=== PATIENT | female | born 1995 | race Caucasian/White ===

== ENCOUNTER 2016-06-14 13:24 | Emergency (ER) | payer BC, OTHER ==
[~2016-06-14] VITALS: Ht 157.5 cm; Wt 75.4 kg
[~2016-06-14 13:24] MED LIST: HYDR-5688 PO; ONDA4TAB10 SL; ONDA4TAB46 PO
[2016-06-14 13:27] VITALS: TEMP 36.6; Ht 157.5 cm; Wt 75.4 kg
[2016-06-14] MEDS ORDERED: DICL50TA3 PO (13:44)
[2016-06-14 14:06] LABS: BASO % 0.5 %; BASO ABS # 0.04 K/uL (0-0.2); COMPLETE YES; EOS % 1.3 %; IG% 0.1 %; LYMPH % 25.9 %; LYMPH ABS # 2.18 K/uL (1.2-3.4); MEAN CELL VOLUME 85.8 fL (80-100); MEAN CORPUSCULAR HEMOGLOBIN 29.9 pg (25-34); MEAN CORPUSCULAR HGB CONC 34.9 g/dl (32-36); MEAN PLATELET VOLUME 9.6 fL (7.4-10.4); MONO % 6.8 %; NEUT % 65.4 %; PLATELET COUNT 342 K/uL (130-400); RED BLOOD COUNT 4.78 M/uL (4.2-5.4); WHITE BLOOD COUNT 8.41 K/uL (4.8-10.8)
[2016-06-14 14:10] LABS: URINE APPEARANCE CLOUDY (CLEAR); URINE BILIRUBIN NEG (NEG); URINE COLOR YELLOW; URINE EPITHELIAL CELL AUTO >30 /lpf (0-5); URINE NITRITE NEG (NEG); URINE PH 7.5 (4.5-7.5); URINE SPECIFIC GRAVITY 1.022 (1.000-1.030); UROBILINOGEN NEG (NEG); ZZUR CULT IF INDIC CLEAN CATCH YES
[2016-06-14 14:14] LABS: MANUAL MICROSCOPIC REQUIRED? NO; REVIEW REQ? YES
[2016-06-14 14:19] LABS: BUN/CREATININE RATIO 13.3 (10-20); CALCIUM 9.6 mg/dl (8.5-10.1); CREATININE 0.94 mg/dl (0.60-1.20); POTASSIUM 3.5 mmol/L (3.5-5.1)
[2016-06-14 14:22] LABS: ALB/GLOB RATIO 1.2 (0.9-2)
[2016-06-14] MEDS ORDERED: ONDANSETRON INJ 2 MG/ML 2 ML VIAL IV STA (15:22)
[2016-06-14] MEDS ORDERED: MoRPHine SULFATE 4 MG/ML 1 ML CARP\\VIAL IV ONE (15:30)
[2016-06-14] MEDS ORDERED: OPTIRAY 320 IV PRN (15:30)
[2016-06-14] MEDS ORDERED: SODIUM CHLORIDE 0.9% 1000ML 1,000 ML IV ONE ×2 (15:30)
--- NOTE | 2016-06-14 17:08 | DIAGNOSTIC IMAGING REPORT ---
PELVIC ULTRASOUND CLINICAL HISTORY: Right lower quadrant abdominal pain. COMPARISON STUDY: CT of the abdomen and pelvis April 01, 2016 and pelvic ultrasound May 07, 2012. TECHNIQUE: Transabdominal sonography of the pelvis was performed. Transvaginal imaging was deferred in this patient. FINDINGS: The uterus measures 7.4 x 2.6 x 4.4 cm. The endometrium measures 5 mm in thickness. The right ovary measures 4 x 1.4 x 2.5 cm and the left measures 2.8 x 1.3 x 3.7 cm. Color flow is identified within each ovary. There was no free fluid. IMPRESSION: Unremarkable transabdominal pelvic ultrasound. Electronically signed by: Joao Espinoza M.D. 06/14/2016 5:06 PM Dictated Date/Time: 06/14/2016 5:05 PM
[2016-06-14 18:00] VITALS: BP 139/91; PULSE 88; O2SAT 98
--- NOTE | 2016-06-14 18:37 | DIAGNOSTIC IMAGING REPORT ---
CT OF THE ABDOMEN AND PELVIS WITH CONTRAST CLINICAL HISTORY: Right lower quadrant abdominal pain. COMPARISON STUDY: CT of the abdomen and pelvis April 01, 2016 and pelvic ultrasound performed earlier today. TECHNIQUE: Following IV administration of 118 mL of Optiray-320, axial images of the abdomen and pelvis were obtained from the lung bases to the proximal femurs. Images were reviewed in the axial, sagittal, and coronal planes. IV contrast was administered without complication. Oral contrast was administered. CT DOSE: 345.93 mGy.cm FINDINGS: Lung bases are clear. No pneumatosis, free air or portal venous gas is present. Liver, spleen, adrenal glands, kidneys and pancreas are normal. There is no biliary or pancreatic ductal dilatation. There is no peripancreatic or pericholecystic infiltration. There is no hydronephrosis. The caliber and wall thickness of small and large bowel are normal. The appendix is normal. There is no free fluid. There is no lymphadenopathy or abscess. Skeletal structures are unremarkable. IMPRESSION: No acute process within the abdomen or pelvis. Normal appendix. Electronically signed by: Joao Espinoza M.D. 06/14/2016 6:35 PM Dictated Date/Time: 06/14/2016 6:32 PM
[2016-06-14] MEDS ORDERED: KETOROLAC TROMETHAMINE 30 MG/ML VIAL IV STA (19:25)
[2016-06-14] MEDS ORDERED: SEPTRA DS HOME PACK 1 EA VIAL PO ONE (19:30)
[2016-06-14] MEDS ORDERED: NORCO 5/325MG HOME PACK PO ONE (19:30)
[2016-06-14] MEDS ORDERED: SULF800T23 PO (19:32)
--- NOTE | 2016-06-14 23:15 | EMERGENCY ROOM VISIT NOTE ---
History First contact with patient: 15:07 Chief Complaint: VOMITING Stated Complaint: PAIN LWR RIGHT SIDE, V, D, WEAKNESS Nursing Triage Summary: Triage note: Pt reports diarrhea for the past several months. pt reports dark stool today "it had some red in it." pt also reports nausea and vomitting since this am. pt reports right abd pain since this am. History of Present Illness The patient is a 20 year old female who presents to the Emergency Room with complaints of right lower quadrant abdominal pain worsening over the past one day. The patient states that she has had associated nausea, vomiting, diarrhea , and weakness. The patient does report a history of some persistent diarrhea for the past several months. She has followed with her primary care physician, who is treating her for GERD. The patient is accompanied by her mother, and evidently the patient was followed by pediatric gastroenterology about 5 years ago for GI concerns. There is a family history of Crohn's disease, and the patient did have an upper and lower endoscopy about 5 or 6 years ago that was essentially normal. The patient has not continued GI follow-up in adulthood. The patient reports having 3 or 4 episodes of emesis today. She has felt warm but has not been taking her temperature. She is denying chance of and has not taken anything at home for her symptoms. She rates her current discomfort a 7/10. Review of Systems More than 10 systems were reviewed and otherwise negative with the exception of history of present illness. Past Medical/Surgical History Medical Problems: (1) GERD (gastroesophageal reflux disease) Family History FH: cancer FH: lung disease FHx: gallbladder disease Heart disease Hypertension Kidney disease Kidney stones Social History Smoking Status: Never Smoker Alcohol Use: none Drug Use: none Marital Status: single Housing Status: lives with family Occupation Status: employed Current/Historical Medications Scheduled Diclofenac (Voltaren), 50 MG PO Q12 Escitalopram (Lexapro), 10 MG PO DAILY Sulfa/Trimethoprim (Bactrim Ds 800MG/160MG), 1 TAB PO BID Allergies Coded Allergies: Penicillins (Unverified Allergy, Intermediate, hives, 06/14/16) Amoxicillin (Verified Allergy, Mild, UNKNOWN, 06/14/16) Physical Exam Vital Signs Date Time Temp Pulse Resp B/P Pulse Ox O2 Delivery O2 Flow Rate FiO2 06/14/16 18:00 88 18 139/91 98 Room Air 06/14/16 15:39 88 18 140/93 98 Room Air 06/14/16 13:27 36.6 90 18 123/85 98 Room Air Physical Exam VITALS: Vitals are noted on the nurse's note and reviewed by myself. Vital signs stable. GENERAL: Well-developed, well-nourished, white female, who is in no acute distress and resting comfortably. Patient is cooperative with the examination. HEAD: Normocephalic atraumatic. HEART: Regular rate and rhythm without murmurs gallops or rubs. LUNGS: Clear to auscultation bilaterally without wheezes, rales or rhonchi. No retractions or accessory muscle use. ABDOMEN: Positive normal bowel sounds x 4. Soft with right lower quadrant tenderness on palpation. There is also some suprapubic tenderness. No CVA tenderness. No left-sided or upper abdominal tenderness. No rebound or guarding. MUSCULOSKELETAL: No muscle atrophy, erythema, or edema noted. Full range of motion without joint tenderness in all extremities. Medical Decision & Procedures ER Provider Diagnostic Interpretation: PELVIC ULTRASOUND CLINICAL HISTORY: Right lower quadrant abdominal pain. COMPARISON STUDY: CT of the abdomen and pelvis April 01, 2016 and pelvic ultrasound May 07, 2012. TECHNIQUE: Transabdominal sonography of the pelvis was performed. Transvaginal imaging was deferred in this patient. FINDINGS: The uterus measures 7.4 x 2.6 x 4.4 cm. The endometrium measures 5 mm in thickness. The right ovary measures 4 x 1.4 x 2.5 cm and the left measures 2.8 x 1.3 x 3.7 cm. Color flow is identified within each ovary. There was no free fluid. IMPRESSION: Unremarkable transabdominal pelvic ultrasound. CT OF THE ABDOMEN AND PELVIS WITH CONTRAST CLINICAL HISTORY: Right lower quadrant abdominal pain. COMPARISON STUDY: CT of the abdomen and pelvis April 01, 2016 and pelvic ultrasound performed earlier today. TECHNIQUE: Following IV administration of 118 mL of Optiray-320, axial images of the abdomen and pelvis were obtained from the lung bases to the proximal femurs. Images were reviewed in the axial, sagittal, and coronal planes. IV contrast was administered without complication. Oral contrast was administered. CT DOSE: 345.93 mGy.cm FINDINGS: Lung bases are clear. No pneumatosis, free air or portal venous gas is present. Liver, spleen, adrenal glands, kidneys and pancreas are normal. There is no biliary or pancreatic ductal dilatation. There is no peripancreatic or pericholecystic infiltration. There is no hydronephrosis. The caliber and wall thickness of small and large bowel are normal. The appendix is normal. There is no free fluid. There is no lymphadenopathy or abscess. Skeletal structures are unremarkable. IMPRESSION: No acute process within the abdomen or pelvis. Normal appendix. Laboratory Results 06/14/16 13:55 Red Blood Count 4.78, Mean Corpuscular Volume 85.8, Mean Corpuscular Hemoglobin 29.9, Mean Corpuscular Hemoglobin Concent 34.9, Mean Platelet Volume 9.6, Neutrophils (%) (Auto) 65.4, Lymphocytes (%) (Auto) 25.9, Monocytes (%) (Auto) 6.8, Eosinophils (%) (Auto) 1.3, Basophils (%) (Auto) 0.5, Neutrophils # (Auto) 5.50, Lymphocytes # (Auto) 2.18, Monocytes # (Auto) 0.57, Eosinophils # (Auto) 0.11, Basophils # (Auto) 0.04 06/14/16 13:55 Test 06/14/16 13:50 06/14/16 13:55 Urine Color YELLOW Urine Appearance CLOUDY (CLEAR) Urine pH 7.5 (4.5-7.5) Urine Specific [place] 1.022 (1.000-1.030) Urine Protein NEG (NEG) Urine Glucose (UA) NEG (NEG) Urine Ketones 1+ (NEG) Urine Occult Blood 3+ (NEG) Urine Nitrite NEG (NEG) Urine Bilirubin NEG (NEG) Urine Urobilinogen NEG (NEG) Urine Leukocyte Esterase LARGE (NEG) Urine WBC (Auto) >30 /hpf (0-5) Urine RBC (Auto) 10-30 /hpf (0-4) Urine Hyaline Casts (Auto) 1-5 /lpf (0-5) Urine Epithelial Cells (Auto) >30 /lpf (0-5) Urine Bacteria (Auto) 2+ (NEG) Urine Pathogenic Casts /lpf (0) Urine Test NEG (NEG) White Blood Count 8.41 K/uL (4.8-10.8) Red Blood Count 4.78 M/uL (4.2-5.4) Hemoglobin 14.3 g/dL (12.0-16.0) Hematocrit 41.0 % (37-47) Mean Corpuscular Volume 85.8 fL (80-100) Mean Corpuscular Hemoglobin 29.9 pg (25-34) Mean Corpuscular Hemoglobin Concent 34.9 g/dl (32-36) Platelet Count 342 K/uL (130-400) Mean Platelet Volume 9.6 fL (7.4-10.4) Neutrophils (%) (Auto) 65.4 % Lymphocytes (%) (Auto) 25.9 % Monocytes (%) (Auto) 6.8 % Eosinophils (%) (Auto) 1.3 % Basophils (%) (Auto) 0.5 % Neutrophils # (Auto) 5.50 K/uL (1.4-6.5) Lymphocytes # (Auto) 2.18 K/uL (1.2-3.4) Monocytes # (Auto) 0.57 K/uL (0.11-0.59) Eosinophils # (Auto) 0.11 K/uL (0-0.5) Basophils # (Auto) 0.04 K/uL (0-0.2) RDW Standard Deviation 42.2 fL (36.4-46.3) RDW Coefficient of Variation 13.5 % (11.5-14.5) Immature Granulocyte % (Auto) 0.1 % Immature Granulocyte # (Auto) 0.01 K/uL (0.00-0.02) Anion Gap 9.0 mmol/L (3-11) Est Creatinine Clear Calc Drug Dose 91.5 ml/min Estimated GFR () 101.9 Estimated GFR (Non- 88.0 BUN/Creatinine Ratio 13.3 (10-20) Calcium Level 9.6 mg/dl (8.5-10.1) Total Bilirubin 0.5 mg/dl (0.2-1) Aspartate Amino Transf (AST/SGOT) 9 U/L (15-37) Alanine Aminotransferase (ALT/SGPT) 20 U/L (12-78) Alkaline Phosphatase 103 U/L (45-117) Total Protein 8.5 gm/dl (6.4-8.2) Albumin 4.6 gm/dl (3.4-5.0) Globulin 3.9 gm/dl (2.5-4.0) Albumin/Globulin Ratio 1.2 (0.9-2) Lipase 127 U/L (73-393) Medications Administered Medications (Trade) Dose Ordered Sig/Kim Route Start Time Stop Time Status Last Admin Dose Admin Sodium Chloride (Nss 1000ml) 1,000 ml @ 999 mls/hr Q1H1M ONCE IV 06/14/16 15:30 06/14/16 16:30 DC 06/14/16 15:36 999 MLS/HR Morphine Sulfate (MoRPHine SULFATE INJ) 4 mg NOW ONCE IV 06/14/16 15:30 06/14/16 15:31 DC 06/14/16 15:37 4 MG Ondansetron HCl 4 mg 4 mg NOW STAT IV 06/14/16 15:22 06/14/16 15:23 DC 06/14/16 15:37 4 MG Sodium Chloride (Nss 1000ml) 1,000 ml @ 999 mls/hr Q1H1M ONCE IV 06/14/16 15:30 06/14/16 16:30 DC 06/14/16 15:37 999 MLS/HR Ketorolac Tromethamine (Toradol Inj) 30 mg NOW STAT IV 06/14/16 19:25 06/14/16 19:26 DC 06/14/16 19:33 30 MG Trimethoprim/ Sulfamethoxazole (Sulfameth/ Trimeth Ds 800/ 160MG Home Pack) 1 homepack UD ONCE PO 06/14/16 19:30 06/14/16 19:31 DC 06/14/16 19:34 1 HOMEPACK Acetaminophen/ Hydrocodone Bitart ([place] 5/325mg Home Pack) 1 homepack UD ONCE PO 06/14/16 19:30 06/14/16 19:31 DC 06/14/16 19:33 1 HOMEPACK ED Course Physical exam and history were performed. Nursing notes and EMR were reviewed. Patient appears to have right lower quadrant tenderness of her abdomen as well as nausea, vomiting, and diarrhea. There is a past family history of Crohn's disease, but no such diagnosis for this patient. IV access was established and labs were obtained. She was hydrated with normal saline and provided a small amount of morphine and Zofran for comfort. Out of concern for a possible surgical abdomen at did elect to order an ultrasound of the ovary and CT scan of the abdomen and pelvis. The patient's blood work is as above and was reviewed. The patient does not have a significant elevated white blood cell count, gross anemia, bandemia, or significant electrolyte imbalance. Lipase and transaminases are nondiagnostic. The patient's urine is quite concerning for infectious findings. Ultrasound did return as showing no significant acute findings. CT scan also returned as no acute findings. Overall the patient did have improvement of her discomfort after the above interventions. She did require a small amount of Toradol prior to discharge. I clinically suspected that her discomfort is related to a UTI, and possibly an early ascending pyelonephritis. I will give the patient a course of Bactrim for her symptoms. Recommended that she follow with her primary care physician for further care and management. Regarding her chronic diarrhea, I feel that she should see GI now that she is an adult, and she agrees. The patient was otherwise invited back to the ER with any new, worsening, or concerning symptoms. She voiced understanding of this plan and was discharged home under the care of her mother. The chart was completed utilizing [employer] Speech Voice Recognition Software. Grammatical errors, random word insertions, pronoun errors, and incomplete sentences are an occasional consequence of this system due to software limitations, ambient noise, and hardware issues. Any formal questions or concerns about the content, text, or information contained within the body of this dictation should be directly addressed to the provider for clarification. . Medical Decision Differential diagnosis: Etiologies such as appendicitis, diverticulitis, PUD, biliary pathology, UTI, pancreatitis, obstruction, mesenteric ischemia, aortic pathology, infections, inflammatory bowel disease, renal colic, as well as others were entertained. Impression Primary Impression: Urinary tract infection Additional Impressions: Abdominal pain Chronic diarrhea Departure Information Prescriptions Sulfa/Trimethoprim (Bactrim Ds 800MG/160MG) Tab 1 TAB PO BID for 9 Days, #18 TAB Prov: Tomas Hernandez PA-C 06/14/16 Referrals Jaci Espinoza M.D. (PCP) Patient Instructions [facility] Problem Qualifiers
[2016-06-20] MEDS ORDERED: ESCI10TA17 PO (16:34)
[2016-08-07] MEDS ORDERED: VANC5CAP PO (09:21)
[2016-11-12] MEDS ORDERED: TRAM-10 PO (10:35)
[2016-12-16] MEDS ORDERED: CYCL5TAB PO (10:35)
== END 2016-06-14 20:39 | disposition home or self-care (01) ==
LOC: C.EDB 13:26
DX: N39.0 Urinary tract infection, site not specified (principal); R10.9 Unspecified abdominal pain; K52.9 Noninfective gastroenteritis and colitis, unspecified; K21.9 Gastro-esophageal reflux disease without esophagitis; Z83.79 Family history of other diseases of the digestive system; Z79.899 Other long term (current) drug therapy

== ENCOUNTER 2016-06-19 08:11 | Emergency (ER) | payer BC ==
[~2016-06-19] VITALS: Ht 157.5 cm; Wt 75.0 kg
[~2016-06-19 08:11] MED LIST changes: +DICL50TA3 PO; -HYDR-5688 PO; -ONDA4TAB10 SL; -ONDA4TAB46 PO; +SULF800T23 PO
[2016-06-19 08:12] VITALS: TEMP 36.5; Ht 157.5 cm; Wt 75.0 kg
[2016-06-19] MEDS ORDERED: ONDANSETRON INJ 2 MG/ML 2 ML VIAL IV STA (08:26)
[2016-06-19] MEDS ORDERED: SODIUM CHLORIDE 0.9% 1000ML 1,000 ML IV STA ×2 (08:26→09:36)
--- NOTE | 2016-06-19 08:33 | EMERGENCY ROOM VISIT NOTE ---
History First contact with patient: 08:18 Chief Complaint: VOMITING Stated Complaint: VOMITING Nursing Triage Summary: Vomiting. UTI. abdominal pain. History of Present Illness The patient is a 20 year old female who presents to the Emergency Room with complaints of abdominal pain, nausea, vomiting and diarrhea. The patient states that she has had ongoing diarrhea for the last several months. She states that she noticed some blood in her diarrhea. The patient has also had vomiting and diarrhea. She states she feels very lightheaded and has lost 10 pounds because she has not been able to eat. She saw her family doctor who thought it might be related to stress. She was seen here 5 days ago. She had CT imaging which did not reveal any significant abnormality. She was diagnosed with a bladder infection and started on Bactrim. The patient states she has not had any improvement in her symptoms. She rates her discomfort a 7/10. She denies any fevers. She denies any pain in her chest or trouble breathing. She denies any dysuria, urgency, frequency, hematuria. She denies any vaginal bleeding or discharge. She denies any chance for sexual transmitted infections. Review of Systems A 10 system review of systems was completed with positives and pertinent negatives listed in the HPI. Past Medical/Surgical History Medical Problems: (1) GERD (gastroesophageal reflux disease) Family History FH: cancer FH: lung disease FHx: gallbladder disease Heart disease Hypertension Kidney disease Kidney stones Social History Smoking Status: Never Smoker Alcohol Use: none Drug Use: none Marital Status: single Housing Status: lives with family Occupation Status: employed Current/Historical Medications Scheduled Escitalopram (Lexapro), 10 MG PO DAILY Metronidazole (Flagyl), 500 MG PO TID Ondasetron Odt (Zofran Odt), 4 MG PO PRN UD Ondasetron Odt (Zofran Odt), 4 MG SL Q6H Scheduled PRN Diclofenac Sod (Diclofenac Sodium Dr), 50 MG PO Q12 PRN for Pain Allergies Coded Allergies: Penicillins (Unverified Allergy, Intermediate, hives, 06/19/16) Amoxicillin (Verified Allergy, Mild, UNKNOWN, 06/19/16) Physical Exam Vital Signs Date Time Temp Pulse Resp B/P Pulse Ox O2 Delivery O2 Flow Rate FiO2 06/19/16 14:49 76 20 128/80 98 06/19/16 13:45 76 20 128/80 98 Room Air 06/19/16 11:45 75 20 121/81 99 Room Air 06/19/16 09:48 77 18 121/85 99 Room Air 06/19/16 08:12 36.5 118 18 118/73 99 Room Air Physical Exam VITALS: Vitals are noted on the nurse's note and reviewed by myself. Vital signs stable. The patient is afebrile. GENERAL: This is a 20-year-old female, in no acute distress, nondiaphoretic, well-developed well-nourished. SKIN: The skin was without rashes, erythema, edema, or bruising. There is no tenting of the skin. Capillary reflex less than 2 seconds. HEAD: Normocephalic atraumatic. EARS: External auditory canals clear, tympanic membranes pearly san without erythema or effusion bilaterally. EYES: Pupils equal round and reactive to light and accommodation. Conjunctivae without injection, sclerae without icterus. Extraocular movements intact. NOSE: Patent, turbinates without inflammation or discharge. No sinus tenderness. MOUTH: Mucous membranes moist. Tonsils are not enlarged. Pharynx without erythema or exudate. Uvula midline. Airway patent. Tongue does not deviate. NECK: Supple without nuchal rigidity. No lymphadenopathy. No thyromegaly. Cervical spine is nontender. No JVD. HEART: Regular rate and rhythm without murmurs gallops or rubs. LUNGS: Clear to auscultation bilaterally without wheezes, rales or rhonchi. No retractions or accessory muscle use. ABDOMEN: Positive bowel sounds x 4. Soft, nontender, without masses or organomegaly. There is mild diffuse tenderness. : The external genitalia is normal in appearance. There is whitish discharge. There is minimal cervical irritation. There is no cervical motion tenderness, adnexal tenderness or adnexal mass. MUSCULOSKELETAL: No muscle atrophy, erythema, or edema noted. Full range of motion without joint tenderness in all extremities. No tenderness to palpation. Normal gait. Strength 5/5 throughout. NEURO: Patient was alert and oriented to person place and time. No focal neurological deficits. Medical Decision & Procedures Laboratory Results 06/19/16 08:30 Red Blood Count 4.96, Mean Corpuscular Volume 84.5, Mean Corpuscular Hemoglobin 30.0, Mean Corpuscular Hemoglobin Concent 35.6, Mean Platelet Volume 9.9, Neutrophils (%) (Auto) 58.6, Lymphocytes (%) (Auto) 28.7, Monocytes (%) (Auto) 8.7, Eosinophils (%) (Auto) 3.2, Basophils (%) (Auto) 0.7, Neutrophils # (Auto) 3.98, Lymphocytes # (Auto) 1.95, Monocytes # (Auto) 0.59, Eosinophils # (Auto) 0.22, Basophils # (Auto) 0.05 06/19/16 08:30 Test 06/19/16 08:30 06/19/16 09:30 06/19/16 10:00 06/19/16 10:40 White Blood Count 6.80 K/uL (4.8-10.8) Red Blood Count 4.96 M/uL (4.2-5.4) Hemoglobin 14.9 g/dL (12.0-16.0) Hematocrit 41.9 % (37-47) Mean Corpuscular Volume 84.5 fL (80-100) Mean Corpuscular Hemoglobin 30.0 pg (25-34) Mean Corpuscular Hemoglobin Concent 35.6 g/dl (32-36) Platelet Count 310 K/uL (130-400) Mean Platelet Volume 9.9 fL (7.4-10.4) Neutrophils (%) (Auto) 58.6 % Lymphocytes (%) (Auto) 28.7 % Monocytes (%) (Auto) 8.7 % Eosinophils (%) (Auto) 3.2 % Basophils (%) (Auto) 0.7 % Neutrophils # (Auto) 3.98 K/uL (1.4-6.5) Lymphocytes # (Auto) 1.95 K/uL (1.2-3.4) Monocytes # (Auto) 0.59 K/uL (0.11-0.59) Eosinophils # (Auto) 0.22 K/uL (0-0.5) Basophils # (Auto) 0.05 K/uL (0-0.2) RDW Standard Deviation 41.7 fL (36.4-46.3) RDW Coefficient of Variation 13.7 % (11.5-14.5) Immature Granulocyte % (Auto) 0.1 % Immature Granulocyte # (Auto) 0.01 K/uL (0.00-0.02) Prothrombin Time 11.8 SECONDS (9.0-12.0) Prothromb Time International Ratio 1.1 (0.9-1.1) Activated Partial Thromboplast Time 30.0 SECONDS (21.0-31.0) Partial Thromboplastin Ratio 1.2 Anion Gap 14.0 mmol/L (3-11) Est Creatinine Clear Calc Drug Dose 98.6 ml/min Estimated GFR () 111.9 Estimated GFR (Non- 96.6 BUN/Creatinine Ratio 14.8 (10-20) Calcium Level 9.9 mg/dl (8.5-10.1) Magnesium Level 2.2 mg/dl (1.8-2.4) Total Bilirubin 0.6 mg/dl (0.2-1) Aspartate Amino Transf (AST/SGOT) 12 U/L (15-37) Alanine Aminotransferase (ALT/SGPT) 19 U/L (12-78) Alkaline Phosphatase 109 U/L (45-117) Total Protein 8.1 gm/dl (6.4-8.2) Albumin 4.5 gm/dl (3.4-5.0) Globulin 3.6 gm/dl (2.5-4.0) Albumin/Globulin Ratio 1.3 (0.9-2) Amylase Level 47 U/L (25-115) Lipase 122 U/L (73-393) Urine Crystals CALCIUM OXALATE (NONE Urine Test NEG (NEG) Stool Cryptosporidium Antigen NOT DETECTED (NOT DETECTED) Stool Isospora and Cyclospora NOT DETECTED Stool Ova & Parasites SEE NOTE Stool Ova & Parasite Source OTHER-TOTAL Stool Parasite Trichrome Stain SEE NOTE Stool Comments (()) Giardia Antigen NOT DETECTED (NOT DETECTED) Chlamydia trachomatis RNA NOT DETECTED (NOT DETECTED) Neisseria gonorrhoeae RNA NOT DETECTED (NOT DETECTED) Test 06/19/16 11:20 Urine Color YELLOW Urine Appearance CLEAR (CLEAR) Urine pH 5.0 (4.5-7.5) Urine Specific [place] 1.020 (1.000-1.030) Urine Protein NEG (NEG) Urine Glucose (UA) NEG (NEG) Urine Ketones 2+ (NEG) Urine Occult Blood TRACE (NEG) Urine Nitrite NEG (NEG) Urine Bilirubin NEG (NEG) Urine Urobilinogen NEG (NEG) Urine Leukocyte Esterase NEG (NEG) Urine WBC (Auto) 1-5 /hpf (0-5) Urine RBC (Auto) 0-4 /hpf (0-4) Urine Hyaline Casts (Auto) 1-5 /lpf (0-5) Urine Epithelial Cells (Auto) >30 /lpf (0-5) Urine Bacteria (Auto) NEG (NEG) Urine Renal Epithelial Cells /lpf (0-5) Urine Pathogenic Casts /lpf (0) Urine Mucus PRESENT (NONE PRSENT) Date/Time Source Procedure Growth Status 06/19/16 10:40 Vaginal Swab Trichomonas Preparation - Final Complete 06/19/16 11:20 Urine,Catheterized Urine Culture - Final NO GROWTH - LESS THAN 1,000 COLONIES/ML Complete Medications Administered Medications (Trade) Dose Ordered Sig/Kim Route Start Time Stop Time Status Last Admin Dose Admin Sodium Chloride (Nss 1000ml) 1,000 ml @ 999 mls/hr Q1H1M STAT IV 06/19/16 08:26 06/19/16 09:26 DC 06/19/16 08:48 999 MLS/HR Ondansetron HCl 4 mg 4 mg NOW STAT IV 06/19/16 08:26 06/19/16 08:29 DC 06/19/16 08:49 4 MG Sodium Chloride (Nss 1000ml) 1,000 ml @ 999 mls/hr Q1H1M STAT IV 06/19/16 09:36 06/19/16 10:36 DC 06/19/16 09:47 999 MLS/HR Metronidazole (Flagyl Tab) 500 mg NOW STAT PO 06/19/16 12:42 06/19/16 12:43 DC 06/19/16 13:09 500 MG ED Course The patient was seen and examined. Previous visits were reviewed. The patient does not have a fever or leukocytosis. She does not have any significant electrolyte abnormality. Amylase and lipase were not elevated. INR was 1.1. Initial urinalysis clean catch suggests contamination. A urine cath specimen was obtained and does not suggest urinary tract infection. Pelvic cultures are pending. Stool studies are pending. Stool was positive for C. difficile. The patient has had ongoing diffuse abdominal discomfort, diarrhea and vomiting. She is positive for C. difficile. She'll be started on Flagyl. She already has Zofran. She'll be contacted if the culture results indicate the need for change in treatment. She should return with worsening symptoms. Otherwise, she should follow-up with her family doctor next week. The case was discussed with Dr. Godinez who agrees with the assessment and treatment plan Medical Decision DIFFERENTIAL DIAGNOSIS: Hepatitis, cholecystitis, cholangitis, biliary colic, pancreatitis, pneumonia, subdiaphragmatic abscess, appendicitis, inguinal hernia , nephrolithiasis, inflammatory bowel disease, mesenteric adenitis, peptic ulcer disease, GERD, gastritis, pancreatitis, myocardial infarction, pericarditis, ruptured aortic aneurysm, appendicitis, gastroenteritis, bowel obstruction, splenic infarct, diverticulitis, mesenteric ischemia, metabolic, peritonitis, among others. Impression Primary Impression: C. difficile diarrhea Departure Information Dispostion Home / Self-Care Condition GOOD Prescriptions Metronidazole (Flagyl) 500 Mg Tab 500 MG PO TID for 10 Days, #30 TAB Prov: Janet Wilburn PA-C 06/19/16 Referrals Jaci Espinoza M.D. (PCP) Patient Instructions Clostridium Difficile Toxin Stool, [facility] Additional Instructions Flagyl every 8 hours for 10 days to treat C. difficile infection Do not drink alcohol when taking the Flagyl Return to the emergency Department with any worsening symptoms We will contact you if the culture results indicate the need for change in treatment
[2016-06-19 08:43] LABS: BASO % 0.7 %; BASO ABS # 0.05 K/uL (0-0.2); COMPLETE YES; EOS % 3.2 %; HEMATOCRIT 41.9 % (37-47); IG% 0.1 %; LYMPH % 28.7 %; LYMPH ABS # 1.95 K/uL (1.2-3.4); MEAN CELL VOLUME 84.5 fL (80-100); MEAN CORPUSCULAR HGB CONC 35.6 g/dl (32-36); MEAN PLATELET VOLUME 9.9 fL (7.4-10.4); MONO % 8.7 %; NEUT % 58.6 %; PLATELET COUNT 310 K/uL (130-400); RED BLOOD COUNT 4.96 M/uL (4.2-5.4)
[2016-06-19 08:55] LABS: INR 1.1 (0.9-1.1); PARTIAL THROMBOPLASTIN RATIO 1.2; PROTHROMBIN TIME (PATIENT) 11.8 SECONDS (9.0-12.0)
[2016-06-19 09:00] LABS: BUN/CREATININE RATIO 14.8 (10-20); CALCIUM 9.9 mg/dl (8.5-10.1); CREATININE 0.87 mg/dl (0.60-1.20); MAGNESIUM 2.2 mg/dl (1.8-2.4); POTASSIUM 3.5 mmol/L (3.5-5.1)
[2016-06-19 09:02] LABS: ALB/GLOB RATIO 1.3 (0.9-2)
--- NOTE | 2016-06-19 09:24 | DIAGNOSTIC IMAGING REPORT ---
ABDOMEN 2VIEW W/PA CHEST RTN CLINICAL HISTORY: abdominal pain pain. Nausea. COMPARISON STUDY: No previous studies for comparison. FINDINGS: The soft tissues, psoas shadows, renal outlines and intestinal gas pattern appear normal. There is no evidence for bowel obstruction. There is no evidence for free intraperitoneal air. No abnormal abdominal calcifications are seen. A frontal view of the chest was performed and is unremarkable. IMPRESSION: Normal study. Electronically signed by: Herb Wang M.D. 06/19/2016 9:22 AM Dictated Date/Time: 06/19/2016 9:19 AM
[2016-06-19 10:08] LABS: URINE APPEARANCE CLOUDY (CLEAR); URINE COLOR DK YELLOW; URINE EPITHELIAL CELL AUTO >30 /lpf (0-5); URINE NITRITE NEG (NEG); URINE SPECIFIC GRAVITY 1.035 (1.000-1.030); UROBILINOGEN NEG (NEG); ZZUR CULT IF INDIC CLEAN CATCH YES
[2016-06-19 10:13] LABS: MANUAL MICROSCOPIC REQUIRED? NO; REVIEW REQ? YES; URINE BILIRUBIN NEG (NEG)
[2016-06-19 10:40] LABS: URINE MUCUS PRESENT (NONE PRSENT); URINE PATH CASTS 0-3 GRANULAR CASTS /lpf (0)
[2016-06-19] MEDS ORDERED: METRONIDAZOLE 250 MG TAB PO STA (12:42)
[2016-06-19 13:40] LABS: URINE APPEARANCE CLEAR (CLEAR); URINE BILIRUBIN NEG (NEG); URINE COLOR YELLOW; URINE EPITHELIAL CELL AUTO >30 /lpf (0-5); URINE NITRITE NEG (NEG); UROBILINOGEN NEG (NEG); ZZURINE CULT IF INDIC CATH NO
[2016-06-19 13:42] LABS: MANUAL MICROSCOPIC REQUIRED? NO; REVIEW REQ? YES
[2016-06-19 13:52] LABS: URINE MUCUS PRESENT (NONE PRSENT)
[2016-06-19] MEDS ORDERED: METR-163 PO (14:23)
[2016-06-19 14:49] VITALS: BP 128/80; PULSE 76; O2SAT 98
[2016-06-20] MEDS ORDERED: ESCI10TA17 PO (16:34)
[2016-06-20] MEDS ORDERED: ONDA4TAB10 PO (22:41)
[2016-06-20] MEDS ORDERED: VLT50 PO (22:41)
[2016-06-21 01:21] LABS: CHLAMYDIA TRACH RNA*** NOT DETECTED (NOT DETECTED); GC (NEIS GONORRHOEAE)RNA** NOT DETECTED (NOT DETECTED)
[2016-06-21 15:57] LABS: CRYPTOSPORIDIUM AG TC 37213 NOT DETECTED (NOT DETECTED); ISOSPORA+CYCLOSPORA NOT DETECTED; O&P GIARDIA AG NOT DETECTED (NOT DETECTED); O&P SOURCE OTHER-TOTAL
[2016-08-07] MEDS ORDERED: VANC5CAP PO (09:21)
[2016-11-12] MEDS ORDERED: TRAM-10 PO (10:35)
[2016-12-16] MEDS ORDERED: CYCL5TAB PO (10:35)
== END 2016-06-19 14:50 | disposition home or self-care (01) ==
LOC: C.EDB 08:12
DX: A04.7 Enterocolitis due to Clostridium difficile (principal); Z82.49 Family history of ischemic heart disease and other diseases of the circulatory system

== ENCOUNTER 2016-06-20 21:45 | Emergency (ER) | payer BC ==
[~2016-06-20] VITALS: Ht 157.5 cm; Wt 74.6 kg
[~2016-06-20 21:45] MED LIST changes: +ESCI10TA17 PO; +METR-163 PO
[2016-06-20 21:49] VITALS: TEMP 36.8; Ht 157.5 cm; Wt 74.6 kg
[2016-06-20] MEDS ORDERED: VLT50 PO (22:41)
[2016-06-20] MEDS ORDERED: ONDA4TAB10 PO (22:41)
[2016-06-20] MEDS ORDERED: KETOROLAC TROMETHAMINE 30 MG/ML VIAL IV STA (22:45)
[2016-06-20] MEDS ORDERED: ONDANSETRON INJ 2 MG/ML 2 ML VIAL IV STA (22:45)
[2016-06-20] MEDS ORDERED: SODIUM CHLORIDE 0.9% 1000ML 1,000 ML IV STA ×2 (22:45)
[2016-06-20 23:09] LABS: HEMATOCRIT 44.1 % (37-47); MEAN CELL VOLUME 94.6 fL (80-100); MEAN CORPUSCULAR HEMOGLOBIN 31.5 pg (25-34); MEAN CORPUSCULAR HGB CONC 33.3 g/dl (32-36); MEAN PLATELET VOLUME 9.4 fL (7.4-10.4); PLATELET COUNT 261 K/uL (130-400); RED BLOOD COUNT 4.66 M/uL (4.2-5.4); WHITE BLOOD COUNT 8.73 K/uL (4.8-10.8)
[2016-06-20 23:10] LABS: BASO % 0.1 %; BASO ABS # 0.01 K/uL (0-0.2); COMPLETE YES; EOS % 1.4 %; IG% 0.2 %; LYMPH % 31.4 %; LYMPH ABS # 2.74 K/uL (1.2-3.4); MONO % 7.4 %; NEUT % 59.5 %
[2016-06-20 23:31] LABS: URINE APPEARANCE CLOUDY (CLEAR); URINE BILIRUBIN NEG (NEG); URINE COLOR DK YELLOW; URINE EPITHELIAL CELL AUTO >30 /lpf (0-5); URINE NITRITE NEG (NEG); UROBILINOGEN NEG (NEG); ZZUR CULT IF INDIC CLEAN CATCH YES
[2016-06-20 23:42] LABS: BUN/CREATININE RATIO 10.9 (10-20); CALCIUM 8.8 mg/dl (8.5-10.1); CREATININE 0.77 mg/dl (0.60-1.20); POTASSIUM 3.7 mmol/L (3.5-5.1)
[2016-06-20 23:44] LABS: ALB/GLOB RATIO 1.3 (0.9-2)
[2016-06-20 23:53] LABS: MANUAL MICROSCOPIC REQUIRED? NO; REVIEW REQ? YES
[2016-06-21] MEDS ORDERED: ONDANSETRON INJ 2 MG/ML 2 ML VIAL IV STA (00:04)
[2016-06-21] MEDS ORDERED: ONDA4TAB10 SL (00:15)
--- NOTE | 2016-06-21 00:15 | EMERGENCY ROOM VISIT NOTE ---
History First contact with patient: 22:22 Chief Complaint: VOMITING Stated Complaint: CONSTANT VOMITING AND DIARRHEA Nursing Triage Summary: Vomiting and diarrhea for a week. Patient is currently being treated for C-diff with flagyl. Symptoms are not improving. History of Present Illness The patient is a 20 year old female who presents to the Emergency Room with complaints of vomiting and diarrhea. The patient states that she was seen here yesterday and diagnosed with C. difficile. She was started on metronidazole and has taken 2 days of this medication. She reports that she has had persistent vomiting and diarrhea as well as some generalized abdominal pain. She has not been taking any other medications for her symptoms. She rates her overall discomfort a 9/10. She states that she has had 6 episodes of diarrhea today and has been unable to eat due to the nausea. She is concerned about dehydration. She denies any fevers/chills, urinary symptoms, blood in her stools, chest pain or shortness of breath. Review of Systems A complete 10-point Review of Systems was discussed with the patient, with pertinent positives and negatives listed in the History of Present Illness. All remaining Review of Systems questions can be considered negative unless otherwise specified. Past Medical/Surgical History Medical Problems: (1) GERD (gastroesophageal reflux disease) Family History FH: cancer FH: lung disease FHx: gallbladder disease Heart disease Hypertension Kidney disease Kidney stones Social History Smoking Status: Never Smoker Alcohol Use: none Drug Use: none Marital Status: single Housing Status: lives with family Occupation Status: employed Current/Historical Medications Scheduled Escitalopram (Lexapro), 10 MG PO DAILY Metronidazole (Flagyl), 500 MG PO TID Ondasetron Odt (Zofran Odt), 4 MG PO PRN UD Ondasetron Odt (Zofran Odt), 4 MG SL Q6H Scheduled PRN Diclofenac Sod (Diclofenac Sodium Dr), 50 MG PO Q12 PRN for Pain Allergies Coded Allergies: Penicillins (Unverified Allergy, Intermediate, hives, 06/19/16) Amoxicillin (Verified Allergy, Mild, UNKNOWN, 06/19/16) Physical Exam Vital Signs Date Time Temp Pulse Resp B/P Pulse Ox O2 Delivery O2 Flow Rate FiO2 06/21/16 01:12 71 18 124/79 99 06/20/16 23:24 81 18 118/71 97 Room Air 06/20/16 21:49 36.8 85 18 114/68 96 Room Air Physical Exam VITALS: Vitals are noted on the nurse's note and reviewed by myself. Vital signs stable. GENERAL: This is a 20-year-old female, in no acute distress, nondiaphoretic, well-developed well-nourished. SKIN: Capillary reflex less than 2 seconds. HEENT: Normocephalic. PERRLA. EOMI. Nares patent. Mucous membranes moist. Neck is supple without nuchal rigidity. HEART: Regular rate and rhythm without murmurs gallops or rubs. LUNGS: Clear to auscultation bilaterally without wheezes, rales or rhonchi. No retractions or accessory muscle use. ABDOMEN: Positive bowel sounds x 4. Soft, nontender to palpation. NEURO: Patient was alert and oriented to person place and time. Medical Decision & Procedures Laboratory Results 06/20/16 22:40 Red Blood Count 4.66, Mean Corpuscular Volume 94.6 #, Mean Corpuscular Hemoglobin 31.5, Mean Corpuscular Hemoglobin Concent 33.3, Mean Platelet Volume 9.4, Neutrophils (%) (Auto) 59.5, Lymphocytes (%) (Auto) 31.4, Monocytes (%) ( Auto) 7.4, Eosinophils (%) (Auto) 1.4, Basophils (%) (Auto) 0.1, Neutrophils # ( Auto) 5.19, Lymphocytes # (Auto) 2.74, Monocytes # (Auto) 0.65, Eosinophils # ( Auto) 0.12, Basophils # (Auto) 0.01 06/20/16 23:00 Test 06/20/16 22:40 06/20/16 22:45 06/20/16 23:00 White Blood Count 8.73 K/uL (4.8-10.8) Red Blood Count 4.66 M/uL (4.2-5.4) Hemoglobin 14.7 g/dL (12.0-16.0) Hematocrit 44.1 % (37-47) Mean Corpuscular Volume 94.6 fL (80-100) Mean Corpuscular Hemoglobin 31.5 pg (25-34) Mean Corpuscular Hemoglobin Concent 33.3 g/dl (32-36) Platelet Count 261 K/uL (130-400) Mean Platelet Volume 9.4 fL (7.4-10.4) Neutrophils (%) (Auto) 59.5 % Lymphocytes (%) (Auto) 31.4 % Monocytes (%) (Auto) 7.4 % Eosinophils (%) (Auto) 1.4 % Basophils (%) (Auto) 0.1 % Neutrophils # (Auto) 5.19 K/uL (1.4-6.5) Lymphocytes # (Auto) 2.74 K/uL (1.2-3.4) Monocytes # (Auto) 0.65 K/uL (0.11-0.59) Eosinophils # (Auto) 0.12 K/uL (0-0.5) Basophils # (Auto) 0.01 K/uL (0-0.2) RDW Standard Deviation 44.0 fL (36.4-46.3) RDW Coefficient of Variation 12.9 % (11.5-14.5) Immature Granulocyte % (Auto) 0.2 % Immature Granulocyte # (Auto) 0.02 K/uL (0.00-0.02) Urine Color DK YELLOW Urine Appearance CLOUDY (CLEAR) Urine pH 5.0 (4.5-7.5) Urine Specific [place] 1.020 (1.000-1.030) Urine Protein NEG (NEG) Urine Glucose (UA) NEG (NEG) Urine Ketones TRACE (NEG) Urine Occult Blood TRACE (NEG) Urine Nitrite NEG (NEG) Urine Bilirubin NEG (NEG) Urine Urobilinogen NEG (NEG) Urine Leukocyte Esterase MODERATE (NEG) Urine WBC (Auto) >30 /hpf (0-5) Urine RBC (Auto) 0-4 /hpf (0-4) Urine Hyaline Casts (Auto) 0 /lpf (0-5) Urine Epithelial Cells (Auto) >30 /lpf (0-5) Urine Bacteria (Auto) 3+ (NEG) Urine Crystals CALCIUM OXALATE (NONE Urine Pathogenic Casts /lpf (0) Urine Test NEG (NEG) Anion Gap 11.0 mmol/L (3-11) Est Creatinine Clear Calc Drug Dose 111.1 ml/min Estimated GFR () 129.7 Estimated GFR (Non- 111.9 BUN/Creatinine Ratio 10.9 (10-20) Calcium Level 8.8 mg/dl (8.5-10.1) Total Bilirubin 0.3 mg/dl (0.2-1) Aspartate Amino Transf (AST/SGOT) 9 U/L (15-37) Alanine Aminotransferase (ALT/SGPT) 18 U/L (12-78) Alkaline Phosphatase 89 U/L (45-117) Total Protein 7.2 gm/dl (6.4-8.2) Albumin 4.1 gm/dl (3.4-5.0) Globulin 3.1 gm/dl (2.5-4.0) Albumin/Globulin Ratio 1.3 (0.9-2) Medications Administered Medications (Trade) Dose Ordered Sig/Kim Route Start Time Stop Time Status Last Admin Dose Admin Sodium Chloride 1,000 ml @ 999 mls/hr Q1H1M STAT IV 06/20/16 22:45 06/20/16 23:45 DC 06/20/16 23:15 999 MLS/HR Sodium Chloride (Nss 1000ml) 1,000 ml @ 999 mls/hr Q1H1M STAT IV 06/20/16 22:45 06/20/16 23:45 DC 06/20/16 23:15 999 MLS/HR Ondansetron HCl (Zofran Inj) 4 mg NOW STAT IV 06/20/16 22:45 06/20/16 22:47 DC 06/20/16 23:15 4 MG Ketorolac Tromethamine (Toradol Inj) 30 mg NOW STAT IV 06/20/16 22:45 06/20/16 22:47 DC 06/20/16 23:20 30 MG Ondansetron HCl (Zofran Inj) 4 mg NOW STAT IV 06/21/16 00:04 06/21/16 00:06 DC 06/21/16 00:28 4 MG Medical Decision Differential diagnosis includes C. difficile diarrhea, failed outpatient therapy , gastroenteritis, colitis, among others. The patient was evaluated as above. Labs were drawn and IV access was obtained. Imaging studies were performed and read by radiology as above. The patient was medicated with 2 L normal saline solution and 2 doses of IV Zofran. The patient was reassessed multiple times during their stay in the emergency department and remained in stable condition. The patient is a 20-year-old female who presents today complaining of worsening symptoms of C. difficile. Patient is afebrile. She does not have a surgical abdomen. Labs revealed no leukocytosis, anemia or concerning electrolyte abnormality. No evidence of significant dehydration on laboratory testing. Urinalysis was suggestive of possible infection. However, the patient was seen here yesterday and also had a urinalysis which was evidently contaminated. The patient had a catheterized sample which did not show evidence of any infection. The patient does not have urinary symptoms and I do not believe that she has a urinary tract infection. Urine was negative. The patient felt better after IV hydration and IV antiemetics. She was given a prescription for Zofran and instructed to stay hydrated and follow-up with her primary care provider. She will return here for worsening of her current condition or new/ concerning symptoms. Based on the patient's presentation, lab results, and imaging studies, I feel the patient is stable for outpatient treatment. The patient's case was reviewed with Dr. Wright, ED attending physician, who agreed with my assessment and treatment plan. Discharge instructions were reviewed with the patient. The patient verbalized understanding of my assessment and treatment plan and was discharged home in good condition. Impression Primary Impression: C. difficile diarrhea Departure Information Dispostion Home / Self-Care Condition GOOD Prescriptions Ondasetron Odt (ZOFRAN ODT) 4 Mg Tab 4 MG SL Q6H for Nausea, #20 TAB Prov: Joann Johnson .NOEMI 06/21/16 Referrals Jaci Espinoza M.D. (PCP) Patient Instructions My [facility] Additional Instructions You have been prescribed Zofran to be used for any nausea or vomiting. Take as prescribed. For pain control, you can use the following [id number] medicines (if >12 yo): - Regular strength (325mg/tab) Tylenol (acetaminophen) 2 tabs every 4-6 hours as needed. Do not exceed 12 tablets in a 24 hour period. Avoid taking more than 4 grams (4000 mg) of Tylenol per day. This includes any other sources of acetaminophen you may take on a regular basis. - Regular strength (200 mg/tab) Advil (ibuprofen) 1-2 tabs every 4-6 hours as needed. Do not exceed a dose of 3200 mg per day. Rest and drink plenty of fluids. Continue the antibiotics as prescribed. Follow-up with your primary Care within the next 2-3 days. Return to the emergency department with high fevers, worsening vomiting, worsening pain or any new/concerning symptoms.
[2016-06-21 01:12] VITALS: BP 124/79; PULSE 71; O2SAT 99
[2016-08-07] MEDS ORDERED: VANC5CAP PO (09:21)
[2016-11-12] MEDS ORDERED: TRAM-10 PO (10:35)
[2016-12-16] MEDS ORDERED: CYCL5TAB PO (10:35)
== END 2016-06-21 01:31 | disposition home or self-care (01) ==
LOC: C.EDB 21:46 → C.EDC 06-21 01:31
DX: A04.7 Enterocolitis due to Clostridium difficile (principal); Z79.899 Other long term (current) drug therapy; Z82.49 Family history of ischemic heart disease and other diseases of the circulatory system; Z84.1 Family history of disorders of kidney and ureter

== ENCOUNTER 2016-07-10 10:17 | Emergency (ER) | payer BC ==
[~2016-07-10] VITALS: Ht 157.5 cm; Wt 73.7 kg
[~2016-07-10 10:17] MED LIST changes: -DICL50TA3 PO; -METR-163 PO; +ONDA4TAB10 PO; +ONDA4TAB10 SL; -SULF800T23 PO; +VLT50 PO
[2016-07-10 10:21] VITALS: TEMP 36.8; Ht 157.5 cm; Wt 73.7 kg
--- NOTE | 2016-07-10 10:49 | EMERGENCY ROOM VISIT NOTE ---
History Report prepared by [place]: Mekhi Allan Under the Supervision of: Dr. Mayito Dyer M.D. First contact with patient: 10:30 Chief Complaint: GI ASSESSMENT Stated Complaint: VOMITING BLOOD, STOMACH PAIN, C-DIFF Nursing Triage Summary: dx with c diff "a few weeks ago" pt finished course of antibiotics last pm pt began to vomit blood, pt has had 2 emesis yesterday, none today one emesis was bright red no clots pt also having soft bm yesterday, concern c diff may be back History of Present Illness The patient is a 20 year old female who presents to the Emergency Room with complaints of worsening abdominal pain starting last night. She currently rates her discomfort as a 7/10 in severity.The patient additionally is complaining of softening stools, vomiting, and chills. The patient states that these symptoms are similar to last time she had C-Diff about three weeks ago. The patient states that last time she was treated with Flagyl for ten days, and this ended about 10 days ago. The patient denies any fevers, urinary symptoms, or vaginal discharge. Per the mother, the patient additionally has a history of GERD. She states that when she got C-Diff she additionally had a UTI, and was put on Bactrim for a couple of days. Source of History: patient, parent Onset: last night Position: abdomen Symptom Intensity: 7/10 Timing: worsening Associated Symptoms: + chills, + vomiting, No fevers, No urinary symptoms Note: Associated symptoms: softening stools that isn't quite diarrhea. Review of Systems All systems have been listed, reviewed, and are negative other than those previously mentioned. Please see Additional Medical History Sheet. Past Medical & Surgical Medical Problems: (1) GERD (gastroesophageal reflux disease) Family History FH: cancer FH: lung disease FHx: gallbladder disease Heart disease Hypertension Kidney disease Kidney stones Social History Smoking Status: Never Smoker Alcohol Use: none Drug Use: none Marital Status: single Housing Status: lives with family Occupation Status: employed Current/Historical Medications Scheduled Escitalopram (Lexapro), 10 MG PO DAILY Scheduled PRN Promethazine HCl (Promethazine HCl), 1 TAB PO Q6 PRN for Nausea Promethazine Hcl (Phenergan), 25 MG PO Q6H PRN for Nausea Allergies Coded Allergies: Penicillins (Unverified Allergy, Intermediate, hives, 3/22/17) Amoxicillin (Verified Allergy, Mild, UNKNOWN, 07/10/16) Physical Exam Vital Signs Date Time Temp Pulse Resp B/P Pulse Ox O2 Delivery O2 Flow Rate FiO2 07/10/16 14:49 74 18 115/80 100 Room Air 07/10/16 14:23 72 18 131/64 100 07/10/16 12:14 69 18 112/64 100 Room Air 07/10/16 10:21 36.8 80 20 128/80 96 Room Air Physical Exam GENERAL: Patient awake, alert, oriented x 3. Patient follows commands. Patient does not appear toxic. Patient is adequately hydrated and well- nourished. SKIN: No erythema, pallor, cyanosis or rash HEENT: Normal head, pupils equal, reactive to light and accommodation. Ears normal. Oral cavity and posterior pharynx appear normal. Neck: Without adenopathy, no neck vein distention. LUNGS: Clear to auscultation. No wheezes, no rales, no rhonchi. HEART: No murmurs. No gallops. No rubs ABDOMEN: No masses, no rebound, no hepatomegaly or splenomegaly. EXTREMITIES: Multiple old well-healed scars around he right knee. No signs of trauma. No pedal or pretibial edema. No calf or thigh tenderness. NEUROLOGIC: Cranial nerves II-XII within normal limits. No gross motor sensory function deficits. Medical Decision & Procedures Laboratory Results 07/10/16 10:50 Red Blood Count 4.27, Mean Corpuscular Volume 86.4, Mean Corpuscular Hemoglobin 29.5, Mean Corpuscular Hemoglobin Concent 34.1, Mean Platelet Volume 9.6, Neutrophils (%) (Auto) 52.6, Lymphocytes (%) (Auto) 37.7, Monocytes (%) (Auto) 6.8, Eosinophils (%) (Auto) 2.1, Basophils (%) (Auto) 0.6, Neutrophils # (Auto) 2.72, Lymphocytes # (Auto) 1.95, Monocytes # (Auto) 0.35, Eosinophils # (Auto) 0.11, Basophils # (Auto) 0.03 07/10/16 10:50 Test 07/10/16 10:50 07/10/16 11:00 07/10/16 11:27 White Blood Count 5.17 K/uL (4.8-10.8) Red Blood Count 4.27 M/uL (4.2-5.4) Hemoglobin 12.6 g/dL (12.0-16.0) Hematocrit 36.9 % (37-47) Mean Corpuscular Volume 86.4 fL (80-100) Mean Corpuscular Hemoglobin 29.5 pg (25-34) Mean Corpuscular Hemoglobin Concent 34.1 g/dl (32-36) Platelet Count 250 K/uL (130-400) Mean Platelet Volume 9.6 fL (7.4-10.4) Neutrophils (%) (Auto) 52.6 % Lymphocytes (%) (Auto) 37.7 % Monocytes (%) (Auto) 6.8 % Eosinophils (%) (Auto) 2.1 % Basophils (%) (Auto) 0.6 % Neutrophils # (Auto) 2.72 K/uL (1.4-6.5) Lymphocytes # (Auto) 1.95 K/uL (1.2-3.4) Monocytes # (Auto) 0.35 K/uL (0.11-0.59) Eosinophils # (Auto) 0.11 K/uL (0-0.5) Basophils # (Auto) 0.03 K/uL (0-0.2) RDW Standard Deviation 43.6 fL (36.4-46.3) RDW Coefficient of Variation 13.8 % (11.5-14.5) Immature Granulocyte % (Auto) 0.2 % Immature Granulocyte # (Auto) 0.01 K/uL (0.00-0.02) Anion Gap 7.0 mmol/L (3-11) Est Creatinine Clear Calc Drug Dose 106.3 ml/min Estimated GFR () 123.9 Estimated GFR (Non- 106.9 BUN/Creatinine Ratio 15.7 (10-20) Calcium Level 8.8 mg/dl (8.5-10.1) Total Bilirubin 0.5 mg/dl (0.2-1) Aspartate Amino Transf (AST/SGOT) 12 U/L (15-37) Alanine Aminotransferase (ALT/SGPT) 26 U/L (12-78) Alkaline Phosphatase 74 U/L (45-117) Total Protein 7.0 gm/dl (6.4-8.2) Albumin 3.8 gm/dl (3.4-5.0) Globulin 3.2 gm/dl (2.5-4.0) Albumin/Globulin Ratio 1.2 (0.9-2) Urine Color YELLOW Urine Appearance CLEAR (CLEAR) Urine pH 5.5 (4.5-7.5) Urine Specific [place] >= 1.030 (1.000-1.030) Urine Protein NEG (NEG) Urine Glucose (UA) NEG (NEG) Urine Ketones TRACE (NEG) Urine Occult Blood 2+ (NEG) Urine Nitrite NEG (NEG) Urine Bilirubin NEG (NEG) Urine Urobilinogen NEG (NEG) Urine Leukocyte Esterase NEG (NEG) Urine RBC 5-10 /hpf (0-4) Urine WBC 5-10 /hpf (0-5) Urine Epithelial Cells >30 /lpf (0-5) Urine Bacteria NEG (NEG) Urine Mucus PRESENT (NONE PRSENT) Urine Test NEG (NEG) Laboratory results as stated above per my review. Medications Administered Medications (Trade) Dose Ordered Sig/Kim Route Start Time Stop Time Status Last Admin Dose Admin Morphine Sulfate (MoRPHine SULFATE INJ) 4 mg Q1H PRN IV 07/10/16 12:30 07/10/16 16:51 DC 07/10/16 14:21 4 MG Ondansetron HCl 4 mg 4 mg PRN PRN IV 07/10/16 12:30 07/10/16 16:51 DC 07/10/16 12:39 4 MG Sodium Chloride (Nss 1000ml) 1,000 ml @ 1,000 mls/hr Q1H ONCE IV 07/10/16 12:30 07/10/16 13:29 DC 07/10/16 12:39 1,000 MLS/HR ED Course 1030: Past medical records reviewed. The patient was evaluated in room B7. A complete history and physical examination was performed. 1230: Sodium Chloride 1000 ml @ 1000 mls/hr IV, Zofran Inj 4mg IV, Morphine Sulfate 4mg IV 1355: I reevaluated the patient, and she has not had a bowel movement yet. She is getting the ret of her IV fluids, and if she does not have a bowel movement in the next 30 minutes, then she will be discharged with something to take home. 1432: Upon reevaluation, the patient appeared to have improvement of her symptoms. I discussed today's findings with her. She verbalized agreement of the treatment plan. She was discharged home. Medical Decision Nurses notes reviewed. Medical history sheet reviewed. Differential diagnosis includes but is not limited to: C. Diff., other viral pathogens, anemia, urinary tract infection. Multiple labs were ordered and evaluated. Please see above. The patient was unable to provide a stool specimen. She will be sent home with a container so that we can test for C. difficile and culture. In the meantime she is to take an antiemetic as needed. She is also to encouraged to drink extra fluids. Impression Primary Impression: Nausea, vomiting, and diarrhea Scribe Attestation The scribe's documentation has been prepared under my direction and personally reviewed by me in its entirety. I confirm that the note above accurately reflects all work, treatment, procedures, and medical decision making performed by me. Departure Information Dispostion Home / Self-Care Prescriptions Promethazine Hcl (Phenergan) 25 Mg Tab 25 MG PO Q6H Y for Nausea, #10 TAB Prov: Mayito Dyer M.D. 07/10/16 Referrals Jaci Espinoza M.D. (PCP) Forms HOME CARE DOCUMENTATION FORM, IMPORTANT VISIT INFORMATION Patient Instructions My [facility] Additional Instructions One Phenergan tablet every 6 hours as needed for nausea. Drink extra fluids. Bring in a stool specimen as soon as possible.
[2016-07-10 10:57] LABS: BASO % 0.6 %; BASO ABS # 0.03 K/uL (0-0.2); COMPLETE YES; EOS % 2.1 %; HEMATOCRIT 36.9 % (37-47); IG% 0.2 %; LYMPH % 37.7 %; LYMPH ABS # 1.95 K/uL (1.2-3.4); MEAN CELL VOLUME 86.4 fL (80-100); MEAN CORPUSCULAR HEMOGLOBIN 29.5 pg (25-34); MEAN CORPUSCULAR HGB CONC 34.1 g/dl (32-36); MEAN PLATELET VOLUME 9.6 fL (7.4-10.4); MONO % 6.8 %; NEUT % 52.6 %; PLATELET COUNT 250 K/uL (130-400); RED BLOOD COUNT 4.27 M/uL (4.2-5.4); WHITE BLOOD COUNT 5.17 K/uL (4.8-10.8)
[2016-07-10 11:16] LABS: BUN/CREATININE RATIO 15.7 (10-20); CALCIUM 8.8 mg/dl (8.5-10.1); CREATININE 0.8 mg/dl (0.60-1.20); POTASSIUM 3.7 mmol/L (3.5-5.1)
[2016-07-10 11:18] LABS: ALB/GLOB RATIO 1.2 (0.9-2)
[2016-07-10] MEDS ORDERED: PROM25TA16 PO (11:29)
[2016-07-10 11:36] LABS: MANUAL MICROSCOPIC REQUIRED? YES; URINE APPEARANCE CLEAR (CLEAR); URINE COLOR YELLOW; URINE NITRITE NEG (NEG); URINE PH 5.5 (4.5-7.5); URINE SPECIFIC GRAVITY >= 1.030 (1.000-1.030); UROBILINOGEN NEG (NEG)
[2016-07-10 11:41] LABS: REVIEW REQ? NO; URINE BILIRUBIN NEG (NEG)
[2016-07-10 11:53] LABS: URINE BACTERIA NEG (NEG)
[2016-07-10 11:54] LABS: URINE MUCUS PRESENT (NONE PRSENT); ZZURINE CULT IF INDIC CATH NO
[2016-07-10] MEDS ORDERED: ONDANSETRON INJ 2 MG/ML 2 ML VIAL IV PRN (12:30)
[2016-07-10] MEDS ORDERED: SODIUM CHLORIDE 0.9% 1000ML 1,000 ML IV ONE (12:30)
[2016-07-10] MEDS: MoRPHine SULFATE 4 MG/ML 1 ML CARP\\VIAL IV PRN ×2 (12:41→14:21)
[2016-07-10 14:49] VITALS: BP 115/80; PULSE 74; O2SAT 100
[2016-07-10] MEDS ORDERED: PROM25TA9 PO (14:53)
--- NOTE | 2016-07-12 12:43 | Pharmacy Progress Note ---
ED Pharmacist Culture FollowUp Date of Service: Jul 12, 2016. Patient was seen in the ER on 07/10/16 for NVD. She had been dx with C diff ~ 3wk before presentation and had completed a 10 day course of Flagyl. However after stopping the Flagyl (stopped tx ~10 days prior to ED visit) she began to experience a return of symptoms. She felt the symptoms were similar to those with her first dx of C diff. She was unable to provide a stool specimen in the ED and was sent home with a specimen container. Today, [facility] forwarded the results of her C diff toxin B screening as well as [id number]-[id number] screening. She did test positive for toxin B, and was presumptive negative for [id number]. These results were faxed to us from [facility] of Pathology on [address] today. Reviewed case w/ Dr Dyer. Patient's will likely test positive for C diff toxin if recently treated or if colonized, however since she is presenting with symptoms that she feels are similar to her first episode she will be treated for C diff infxn again. The plan was to treat the patient w/ Vancomycin 125mg PO QID x [address] Dyer felt the patient c/o difficulty tolerating Flagyl for 10 days. I spoke to the patient who stated [facility] had called her earlier today stating the sample she had provided was inadequate and they were requesting a second sample. The patient stated she would call the [facility] [place] office and find out what the next step should be. I said I would wait to hear back from her. She did state she was still experiencing diarrhea.
[2016-08-07] MEDS ORDERED: VANC5CAP PO (09:21)
[2016-11-12] MEDS ORDERED: TRAM-10 PO (10:35)
[2016-12-16] MEDS ORDERED: CYCL5TAB PO (10:35)
== END 2016-07-10 15:02 | disposition home or self-care (01) ==
LOC: C.EDB 10:18
DX: R11.2 Nausea with vomiting, unspecified (principal); R19.7 Diarrhea, unspecified; K21.9 Gastro-esophageal reflux disease without esophagitis; R68.83 Chills (without fever); Z86.19 Personal history of other infectious and parasitic diseases; Z82.49 Family history of ischemic heart disease and other diseases of the circulatory system; Z84.1 Family history of disorders of kidney and ureter

== ENCOUNTER → 2016-08-14 | Day surgery (SDC) | payer BC ==
[2016-08-07 09:21] VITALS: BMI 29.0
[~2016-08-14] VITALS: Ht 157.5 cm; Wt 73.6 kg
[~2016-08-14] MED LIST changes: +CYCL5TAB PO; +LIDOCAINE HCL 2% 2 ML VIAL (20MG/ML) ONE; +LXP10 PO; +NAPR-1169 PO; +NITR1CAP16 PO; -ONDA4TAB10 PO; +ONDA4TAB9 PO; +OXYC-57 PO; +PROM12.56 PO; +PROM25SU28 PR; +PROPOFOL IV EMULSION 10 MG/ML 20 ML VIAL IV ONE; +SODIUM CHLORIDE 0.9% 500ML 500 ML IV ONE; +TRAM-10 PO; +TRAM-453 PO; +ULT50 PO; +VANC5CAP PO; -VLT50 PO
[2016-08-14 13:26] VITALS: Ht 157.5 cm; Wt 73.6 kg
[2016-08-14 13:33] VITALS: TEMP 36.7
--- NOTE | 2016-08-14 13:42 | Endo History and Physical ---
History & Physical Date of Service: Aug 14, 2016. Chief Complaint: hx c-diff, end of June and is on treatment. Referring Physician: Dr. Espinoza History of Present Illness hemetemesis; diarrhea, recurrent c dif infection Past Surgical History Hx Cardiac Surgery: No Hx Internal Defibrillator: No Hx Pacemaker: No Hx Abdominal Surgery: No Hx of Implantable Prosthesis: No Hx Post-Op Nausea and Vomiting: No Hx Cancer Surgery: No Hx Thoracic Surgery: No Hx Orthopedic: Yes (RT KNEE SX X 2, PCL RECONSTRUCTION RT LEG, RT PATELLA REPAIR) Hx Urinary Tract Surgery: No Family History IBD Social History Smoking Status: Current Some Day Smoker Hx Substance Use: No Hx Alcohol Use: No Allergies Coded Allergies: Penicillins (Unverified Allergy, Intermediate, hives, 08/14/16) Amoxicillin (Verified Allergy, Mild, HIVES, 08/14/16) Current Medications Reported Home Medications Medications Dose Route/Sig Max Daily Dose Days Date Category Vancomycin (Vancomycin Hcl) 125 Mg Cap 1 Cap PO BID 08/07/16 Reported Lexapro (Escitalopram Oxalate) 10 Mg Tab 10 Mg PO QPM 03/27/16 Reported Vital Signs Weight (Kilograms): 73.64 Height (Feet): 5 Height (Inches): 2 Date Time Temp Pulse Resp B/P Pulse Ox O2 Delivery O2 Flow Rate FiO2 08/14/16 13:33 36.7 20 119/70 97 Room Air Physical Exam AAOx3 Nl s1s2 Lungs CTA Abd soft NT/ND + BS - CCE Assessment and Plan EGD and colon with biopsies
--- NOTE | 2016-08-14 14:30 | Discharge Instructions ---
Endoscopy Patient Instructions Date / Procedure(s) Performed Aug 14, 2016. Colonoscopy, EGD Allergy Information Coded Allergies: Penicillins (Unverified Allergy, Intermediate, hives, 08/14/16) Amoxicillin (Verified Allergy, Mild, HIVES, 08/14/16) Discharge Date / Findings Aug 14, 2016. gastritis; nl colon Medication Instructions Restart Stopped Medication(s): Reported Home Medications Medications Dose Route/Sig Max Daily Dose Days Date Category Vancomycin (Vancomycin Hcl) 125 Mg Cap 1 Cap PO BID 08/07/16 Reported Lexapro (Escitalopram Oxalate) 10 Mg Tab 10 Mg PO QPM 03/27/16 Reported Reported Home Medications Medications Dose Route/Sig Max Daily Dose Days Date Category Vancomycin (Vancomycin Hcl) 125 Mg Cap 1 Cap PO BID 08/07/16 Reported Lexapro (Escitalopram Oxalate) 10 Mg Tab 10 Mg PO QPM 03/27/16 Reported Provider Instructions Activity Restrictions - No exercising or heavy lifting for 24 hours. - Do not drink alcohol the day of the procedure. - Do not drive a car or operate machinery until the day after the procedure. - Do not make any important decisions or sign important papers in 24 hours after the procedure. Following Day: - Return to full activity which may include returning to work/school. Diet Start your diet with liquids and light foods (jello, soup, juice, toast). Then eat your usual diet if not nauseated. Treatment For Common After Affects For mild abdominal pain, bloating, or excessive gas: - Rest - Eat lightly - Lie on right side Follow-Up Information Follow-up with Dr. Espinoza as scheduled Anesthesia Information What You Should Know You have had a procedure that required some medicine to reduce anxiety and discomfort. This treatment is called moderate sedation. After receiving the treatment, you may be sleepy, but you will be able to breathe on your own. The effects of the treatment may last for several hours. Follow these instructions along with Activity/Diet recommendations noted above: * Do NOT do anything where dizziness or clumsiness would be dangerous. * Rest quietly at home today, then you can be up and about tomorrow. * Have a responsible person stay with you the rest of today. * You may have had an I.V. today. If so, you may take the dressing off later today. Recommendations Call your doctor if: * Trouble breathing * Continuous vomiting for more than 24 hours * Temperature above 101 degrees * Severe abdominal pain or bloating * Pain not relieved by pain medicine ordered * There is increased drainage or redness from any incision * A large amount of rectal bleeding greater than 2-3 tablespoons. (If you had a polyp/s removed or have hemorrhoids, a small amount of blood - from the rectum is to be expected.) * You have any unanswered questions or concerns. IN THE EVENT OF A SERIOUS EMERGENCY, GO TO THE NEAREST EMERGENCY ROOM Your discharge instructions were prepared by provider Joce Camara. Patient Instructions Signature Page Enedina Harvey Patient (or Guardian) Signature/Date: I have read and understand the instructions given to me by my caregivers. Caregiver/RN/Doctor Signature/Date: The above-named patient and/or guardian has received patient instructions on this date. + Original Patient Signature Page (only) stays with chart. Please make copy for patient.
--- NOTE | 2016-08-14 14:37 | GI REPORT ---
Procedure Date: 08/14/2016 2:05 PM Procedure: Colonoscopy Indications: Chronic diarrhea, Clinically significant diarrhea of unexplained origin Medicines: Propofol per Anesthesia Complications: No immediate complications. Estimated blood loss: Minimal. Estimated Blood Loss: Estimated blood loss was minimal. Procedure: Pre-Anesthesia Assessment: - Prior to the procedure, a History and Physical was performed, and patient medications and allergies were reviewed. The patient's tolerance of previous anesthesia was also reviewed. The risks and benefits of the procedure and the sedation options and risks were discussed with the patient. All questions were answered, and informed consent was obtained. Prior Anticoagulants: The patient has taken no previous anticoagulant or antiplatelet agents. ASA Grade Assessment: II - A patient with mild systemic disease. After reviewing the risks and benefits, the patient was deemed in satisfactory condition to undergo the procedure. After I obtained informed consent, the scope was passed under direct vision. Throughout the procedure, the patient's blood pressure, pulse, and oxygen saturations were monitored continuously. The scope was introduced through the anus and advanced to the terminal ileum, with identification of the appendiceal orifice and IC valve. The colonoscopy was performed without difficulty. The patient tolerated the procedure well. The quality of the bowel preparation was good. Findings: The perianal and digital rectal examinations were normal. Pertinent negatives include normal sphincter tone, no palpable rectal lesions and no anal lesion or abnormality was detected. The colon (entire examined portion) appeared normal. The rectum, descending colon, ascending colon and ileum appeared normal. Biopsies were taken with a cold forceps for histology. Estimated blood loss was minimal. Verification of patient identification for the specimen was done by the physician and orthotic finish grinding technician using the patient's name and medical record number. The retroflexed view of the distal rectum and anal verge was normal and showed no anal or rectal abnormalities. Impression: - The entire examined colon is normal. - The rectum, descending colon, ascending colon and terminal ileum are normal. Biopsied. - The distal rectum and anal verge are normal on retroflexion view. Recommendation: - Discharge patient to home (ambulatory). - Resume regular diet. - Continue present medications. - Await pathology results. - Repeat colonoscopy for surveillance based on pathology results. - Return to GI office as previously scheduled. MD Joce Beaulieu MD 08/14/2016 2:35:47 PM This report has been signed electronically. Note Initiated On: 08/14/2016 2:05 PM I attest to the content of the Intraoperative Record and orders documented therein, exceptions below
--- NOTE | 2016-08-14 14:56 | GI REPORT ---
Procedure Date: 08/14/2016 1:59 PM Procedure: Upper GI endoscopy Indications: Hematemesis Medicines: Propofol per Anesthesia Complications: No immediate complications. Estimated blood loss: Minimal. Estimated Blood Loss: Estimated blood loss was minimal. Procedure: Pre-Anesthesia Assessment: - Prior to the procedure, a History and Physical was performed, and patient medications and allergies were reviewed. The patient's tolerance of previous anesthesia was also reviewed. The risks and benefits of the procedure and the sedation options and risks were discussed with the patient. All questions were answered, and informed consent was obtained. Prior Anticoagulants: The patient has taken no previous anticoagulant or antiplatelet agents. ASA Grade Assessment: II - A patient with mild systemic disease. After reviewing the risks and benefits, the patient was deemed in satisfactory condition to undergo the procedure. After obtaining informed consent, the endoscope was passed under direct vision. Throughout the procedure, the patient's blood pressure, pulse, and oxygen saturations were monitored continuously. The scope was introduced through the mouth, and advanced to the second part of duodenum. The upper GI endoscopy was accomplished without difficulty. The patient tolerated the procedure well. Findings: The examined esophagus was normal. The Z-line was regular and was found 39 cm from the incisors. Localized mildly erythematous mucosa without bleeding was found in the gastric antrum. Biopsies were taken with a cold forceps for Helicobacter pylori testing. Verification of patient identification for the specimen was done by the physician and service technician copier using the patient's name and medical record number. The examined duodenum was normal. Biopsies for histology were taken with a cold forceps for evaluation of celiac disease. Estimated blood loss was minimal. Verification of patient identification for the specimen was done by the physician and service technician copier using the patient's name and medical record number. Retained gastric contents are not identified on this exam. The exam of the stomach was otherwise normal. Impression: - Normal esophagus. - Z-line regular, 39 cm from the incisors. - Erythematous mucosa in the antrum. Biopsied. - Normal examined duodenum. Biopsied. Recommendation: - Await pathology results. - Return to GI clinic as previously scheduled. MD Joce Beaulieu MD 08/14/2016 2:54:43 PM This report has been signed electronically. Note Initiated On: 08/14/2016 1:59 PM I attest to the content of the Intraoperative Record and orders documented therein, exceptions below
[2016-08-14 14:57] VITALS: BP 129/76; PULSE 71; O2SAT 100
--- NOTE | 2016-08-14 14:58 | Anesthesiology Progress Note ---
Anesthesia Post Op Note Date & Time Aug 14, 2016 at 14:56 Vital Signs Pain Intensity: 0 Vital Signs Past 12 Hours Date Time Temp Pulse Resp B/P Pulse Ox O2 Delivery O2 Flow Rate FiO2 08/14/16 14:40 73 20 108/70 98 Room Air 08/14/16 14:25 76 16 102/53 99 Room Air 08/14/16 13:33 36.7 20 119/70 97 Room Air Notes Mental Status: alert / awake / arousable, participated in evaluation Pt Amnestic to Procedure: Yes Nausea / Vomiting: adequately controlled Pain: adequately controlled Airway Patency, RR, SpO2: stable & adequate BP & HR: stable & adequate Hydration State: stable & adequate Anesthetic Complications: no major complications apparent
== END | disposition home or self-care (01) ==
LOC: C.GI 13:05
PROVIDERS: ATTEND Internal Medicine Gastroenterology
DX: R19.7 Diarrhea, unspecified (principal); K29.50 Unspecified chronic gastritis without bleeding; K92.0 Hematemesis; F17.200 Nicotine dependence, unspecified, uncomplicated

== ENCOUNTER 2016-09-21 21:31 | Emergency (ER) | payer OTHER, BC ==
[~2016-09-21] VITALS: Ht 157.5 cm; Wt 75.8 kg
[~2016-09-21 21:31] MED LIST changes: -CYCL5TAB PO; -LIDOCAINE HCL 2% 2 ML VIAL (20MG/ML) ONE; -LXP10 PO; -NAPR-1169 PO; -NITR1CAP16 PO; -ONDA4TAB10 SL; -ONDA4TAB9 PO; -OXYC-57 PO; -PROM12.56 PO; -PROM25SU28 PR; -PROPOFOL IV EMULSION 10 MG/ML 20 ML VIAL IV ONE; -SODIUM CHLORIDE 0.9% 500ML 500 ML IV ONE; -TRAM-10 PO; -TRAM-453 PO; -ULT50 PO
[2016-09-21 21:36] VITALS: TEMP 36.7; O2SAT 98; Ht 157.5 cm; Wt 75.8 kg
[2016-09-21] MEDS ORDERED: TRAMADOL HCL 50 MG HOME PACK PO ONE (22:00)
[2016-09-21] MEDS ORDERED: TRAM-453 PO ×2 (22:20→23:52)
[2016-09-21] MEDS ORDERED: NAPR-1169 PO ×2 (22:20→23:52)
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
[2016-09-21 22:41] VITALS: BP 118/76; PULSE 84
[2016-11-12] MEDS ORDERED: TRAM-10 PO (10:35)
[2016-12-16] MEDS ORDERED: CYCL5TAB PO (10:35)
== END 2016-09-21 22:30 | disposition home or self-care (01) ==
LOC: C.EDB 21:32 → C.EDD 22:30
DX: M54.5 Low back pain (principal); Z87.81 Personal history of (healed) traumatic fracture; K21.9 Gastro-esophageal reflux disease without esophagitis; Z79.899 Other long term (current) drug therapy

== ENCOUNTER → 2016-10-01 | Outpatient (CLI) | payer OTHER, BC ==
[~2016-10-01] MED LIST changes: +CYCL5TAB PO; +LXP10 PO; +NITR1CAP16 PO; +ONDA4TAB10 SL; +ONDA4TAB9 PO; +OXYC-57 PO; +PROM12.56 PO; +PROM25SU28 PR; +TRAM-10 PO; +TRAM-453 PO; +ULT50 PO
--- NOTE | 2016-10-01 15:41 | DIAGNOSTIC IMAGING REPORT ---
LUMBAR SPINE 5 VIEWS HISTORY: M54.9 Back [id number] COMPARISON: Lumbar spine 01/23/2014. Lumbar spine CT 04/01/2016. FINDINGS: There is no fracture. No subluxation. Disc spaces are preserved. IMPRESSION: No fracture or subluxation within the lumbar spine. Electronically signed by: Chase Quinones M.D. 10/01/2016 3:39 PM Dictated Date/Time: 10/01/2016 3:33 PM
--- NOTE | 2016-10-01 15:41 | DIAGNOSTIC IMAGING REPORT ---
THORACIC SPINE 3 VIEWS ROUTINE CLINICAL HISTORY: Back pain. COMPARISON STUDY: Thoracic spine CT April 01, 2016. FINDINGS: Alignment of the thoracic spine is anatomic. Minimal loss of height of the superior endplates of T6 and T9 is unchanged exam of April 01, 2016. No additional compression deformities are present. Disc spaces are preserved. IMPRESSION: 1. No acute thoracic spine fracture or subluxation. 2. Chronic minimal compression deformities of the superior endplates of T6 and T9 which are unchanged since exam of April 01, 2016. Otherwise, normal thoracic spine radiographs. Electronically signed by: Joao Espinoza M.D. 10/01/2016 3:40 PM Dictated Date/Time: 10/01/2016 3:33 PM
== END | disposition home or self-care (01) ==
LOC: C.RAD1850 15:07
PROVIDERS: ATTEND Internal Medicine
DX: M54.9 Dorsalgia, unspecified (principal)

== ENCOUNTER 2016-12-16 20:11 | Emergency (ER) | payer BC ==
[~2016-12-16] VITALS: Ht 158.8 cm; Wt 68.1 kg
[~2016-12-16 20:11] MED LIST changes: -LXP10 PO; -NITR1CAP16 PO; -ONDA4TAB10 SL; -ONDA4TAB9 PO; -OXYC-57 PO; -PROM12.56 PO; -PROM25SU28 PR; -TRAM-453 PO; -ULT50 PO; -VANC5CAP PO
[2016-12-16 20:15] VITALS: TEMP 36.7; Ht 158.8 cm; Wt 68.1 kg
[2016-12-16] MEDS ORDERED: KETOROLAC TROMETHAMINE 30 MG/ML VIAL IV STA (20:58)
[2016-12-16] MEDS ORDERED: SODIUM CHLORIDE 0.9% 1000ML 1,000 ML IV STA (20:58)
[2016-12-16] MEDS ORDERED: HYDROmorphone INJ 0.5 MG/0.5 ML SYR IV STA ×2 (20:58→23:08)
[2016-12-16] MEDS ORDERED: ONDANSETRON INJ 2 MG/ML 2 ML VIAL IV STA (20:58)
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
[2016-12-16] MEDS ORDERED: LXP10 PO (21:12)
[2016-12-16] MEDS ORDERED: ULT50 PO (21:12)
[2016-12-16] MEDS ORDERED: OPTIRAY 320 IV PRN (21:15)
[2016-12-16 22:04] LABS: ISTAT CREATININE 0.9 mg/dl; ISTAT HEMOGLOBIN 13.3 g/dl (12.0-16.0); ISTAT IONIZED CALCIUM 1.19 mmol/l
[2016-12-16 22:09] LABS: BASO % 0.6 %; BASO ABS # 0.05 K/uL (0-0.2); COMPLETE YES; HEMATOCRIT 40.2 % (37-47); IG% 0.2 %; LYMPH % 28.2 %; LYMPH ABS # 2.49 K/uL (1.2-3.4); MEAN CELL VOLUME 85.2 fL (80-100); MEAN CORPUSCULAR HEMOGLOBIN 29.4 pg (25-34); MEAN CORPUSCULAR HGB CONC 34.6 g/dl (32-36); MEAN PLATELET VOLUME 9.8 fL (7.4-10.4); MONO % 5.5 %; NEUT % 64.5 %; PLATELET COUNT 293 K/uL (130-400); RED BLOOD COUNT 4.72 M/uL (4.2-5.4); WHITE BLOOD COUNT 8.83 K/uL (4.8-10.8)
[2016-12-16 22:28] LABS: BUN/CREATININE RATIO 9.9 (10-20); CALCIUM 9.2 mg/dl (8.5-10.1); CREATININE 0.85 mg/dl (0.60-1.20); POTASSIUM 3.7 mmol/L (3.5-5.1)
[2016-12-16] MEDS ORDERED: METOCLOPRAMIDE HCL INJ 5 MG/ML 2 ML VIAL IV STA (23:08)
--- NOTE | 2016-12-16 23:14 | DIAGNOSTIC IMAGING REPORT ---
CT OF THE ABDOMEN AND PELVIS WITH CONTRAST CLINICAL HISTORY: Diffuse abdominal pain and vomiting. COMPARISON STUDY: CT of the abdomen and pelvis June 14, 2016 and abdominal series June 19, 2016. TECHNIQUE: Following IV administration of 115 mL of Optiray-320, axial images of the abdomen and pelvis were obtained from the lung bases to the proximal femurs. Images were reviewed in the axial, sagittal, and coronal planes. IV contrast was administered without complication. A dose lowering technique was utilized adhering to the principles of ALARA. CT DOSE: 291.88 mGy.cm FINDINGS: The liver, spleen, adrenal glands, kidneys and pancreas are normal. There is no biliary or pancreatic ductal dilatation. There is no peripancreatic or pericholecystic infiltration. There is no hydronephrosis. Sensitivity for detection of renal calculi is diminished given excreted contrast within the collecting systems. Caliber and wall thickness of small and large bowel are normal. The appendix is partially obscured but visualized portions are normal. No pneumatosis, free air or portal venous gas is present. Note is made of a 1.7 cm dominant follicle within the right ovary. Skeletal structures are unremarkable. IMPRESSION: 1. No acute process within the abdomen or pelvis. 2. Appendix partially obscured but visualized portions normal. No right lower quadrant inflammation. Electronically signed by: Joao Espinoza M.D. 12/16/2016 11:13 PM Dictated Date/Time: 12/16/2016 11:08 PM
[2016-12-16] MEDS ORDERED: PROCHLORPERAZINE 5 MG/ML 2 ML VIAL IV STA (23:19)
[2016-12-16] MEDS ORDERED: DiphenhydrAMINE HCL 50 MG/ML VIAL IV STA (23:19)
[2016-12-16 23:44] LABS: MANUAL MICROSCOPIC REQUIRED? NO; REVIEW REQ? NO; URINE APPEARANCE CLEAR (CLEAR); URINE BILIRUBIN NEG (NEG); URINE COLOR YELLOW; URINE NITRITE NEG (NEG); URINE SPECIFIC GRAVITY > 1.045 (1.000-1.030); UROBILINOGEN NEG (NEG)
[2016-12-17] MEDS ORDERED: OXYC-57 PO (00:25)
[2016-12-17] MEDS ORDERED: ONDA4TAB10 SL (00:25)
[2016-12-17 00:31] VITALS: BP 96/54
[2016-12-17] MEDS ORDERED: ONDANSETRON HOME PACK 4MG OD TAB PO ONE (00:45)
[2016-12-17] MEDS ORDERED: PERCOCET HOME PACK PO ONE (00:45)
[2016-12-17 00:46] VITALS: PULSE 77; O2SAT 97
== END 2016-12-17 00:52 | disposition home or self-care (01) ==
LOC: C.EDB 20:12
DX: R11.10 Vomiting, unspecified (principal); F41.9 Anxiety disorder, unspecified; K21.9 Gastro-esophageal reflux disease without esophagitis; Z87.891 Personal history of nicotine dependence; Z79.899 Other long term (current) drug therapy; Z88.0 Allergy status to penicillin; Z88.1 Allergy status to other antibiotic agents; Z80.9 Family history of malignant neoplasm, unspecified; Z83.79 Family history of other diseases of the digestive system; Z82.49 Family history of ischemic heart disease and other diseases of the circulatory system; Z84.1 Family history of disorders of kidney and ureter

== ENCOUNTER 2016-12-23 12:12 | Emergency (ER) | payer BC ==
[~2016-12-23] VITALS: Ht 157.5 cm; Wt 67.8 kg
[~2016-12-23 12:12] MED LIST changes: -ESCI10TA17 PO; +LXP10 PO; +ONDA4TAB10 SL; +OXYC-57 PO; -TRAM-10 PO; +ULT50 PO
[2016-12-23 12:32] VITALS: TEMP 36.7; Ht 157.5 cm; Wt 67.8 kg
[2016-12-23] MEDS ORDERED: ONDA4TAB9 PO (12:46)
[2016-12-23] MEDS ORDERED: VANC5CAP PO (12:46)
[2016-12-23] MEDS ORDERED: TRAM-453 PO (12:46)
[2016-12-23] MEDS ORDERED: PROCHLORPERAZINE 5 MG/ML 2 ML VIAL IV STA (13:03)
[2016-12-23] MEDS ORDERED: SODIUM CHLORIDE 0.9% 1000ML 1,000 ML IV STA ×2 (13:03→13:59)
[2016-12-23] MEDS ORDERED: MoRPHine SULFATE 4 MG/ML 1 ML CARP\\VIAL IV STA (13:03)
[2016-12-23] MEDS ORDERED: OPTIRAY 320 IV PRN (13:15)
[2016-12-23 13:29] LABS: BASO % 0.3 %; BASO ABS # 0.02 K/uL (0-0.2); COMPLETE YES; EOS % 0.9 %; HEMATOCRIT 41.2 % (37-47); IG% 0.1 %; LYMPH % 23.8 %; LYMPH ABS # 1.78 K/uL (1.2-3.4); MEAN CELL VOLUME 87.5 fL (80-100); MEAN CORPUSCULAR HEMOGLOBIN 29.5 pg (25-34); MEAN CORPUSCULAR HGB CONC 33.7 g/dl (32-36); MEAN PLATELET VOLUME 9.6 fL (7.4-10.4); MONO % 5.4 %; NEUT % 69.5 %; PLATELET COUNT 231 K/uL (130-400); RED BLOOD COUNT 4.71 M/uL (4.2-5.4); WHITE BLOOD COUNT 7.47 K/uL (4.8-10.8)
[2016-12-23 13:47] LABS: BUN/CREATININE RATIO 12.1 (10-20); CALCIUM 9.2 mg/dl (8.5-10.1); CREATININE 0.95 mg/dl (0.60-1.20); POTASSIUM 3.9 mmol/L (3.5-5.1)
[2016-12-23 13:55] LABS: URINE APPEARANCE CLOUDY (CLEAR); URINE BILIRUBIN NEG (NEG); URINE COLOR DK YELLOW; URINE EPITHELIAL CELL AUTO >30 /lpf (0-5); URINE NITRITE NEG (NEG); URINE SPECIFIC GRAVITY 1.029 (1.000-1.030); UROBILINOGEN NEG (NEG); ZZUR CULT IF INDIC CLEAN CATCH YES
[2016-12-23 13:57] LABS: MANUAL MICROSCOPIC REQUIRED? NO; REVIEW REQ? YES
[2016-12-23 14:15] LABS: URINE MUCUS PRESENT (NONE PRSENT)
[2016-12-23] MEDS ORDERED: CEFTRIAXONE SOD INJ 1 GM ADDVIAL IV STA (14:43)
--- NOTE | 2016-12-23 14:59 | DIAGNOSTIC IMAGING REPORT ---
ABD/PELVIS IV CONTRAST ONLY HISTORY: 21 years-old Female h/o of C diff, n/v/d, periumbilical TTP, +obturators, neg psoas acute nausea, vomiting and diarrhea with generalized abdominal pain. The patient is tender to palpation within the periumbilical region. Initial study. COMPARISON: CT abdomen and pelvis 12/16/2016 TECHNIQUE: Multiple axial CT images of the abdomen and pelvis were obtained following the intravenous administration of 93 mL Optiray 320. A dose lowering technique was used consistent with the principals of RAE. FINDINGS: Lung bases are clear. There is no pneumoperitoneum identified. The inferior cardiac chambers are unremarkable. The liver, spleen, pancreas, adrenal glands and gallbladder are unremarkable. Kidneys, ureters, urinary bladder, uterus and adnexa are unremarkable. Trace free pelvic fluid is likely physiologic. The abdominal aorta is normal in both course and caliber without aneurysm or dissection. No bulky adenopathy. No bowel obstruction or focal bowel wall thickening. The appendix seen within the abdominal right lower quadrant and is air-filled, noninflamed and nondilated. No right lower quadrant inflammatory changes. Soft tissues are unremarkable. Bones are intact. There is mild convex right curvature of the lumbar spine. There is moderate fragmentation and lucency of the pubic symphysis. IMPRESSION: 1. No acute intra-abdominal or intrapelvic abnormality identified, specifically the appendix appears normal. 2. Moderate fragmentation and lucency of the pubic symphysis suggests osteitis pubis. The above report was generated using voice recognition software. It may contain grammatical, syntax or spelling errors. Electronically signed by: Ryley Haney M.D. 12/23/2016 2:58 PM Dictated Date/Time: 12/23/2016 2:51 PM
[2016-12-23] MEDS ORDERED: PROM12.56 PO (16:08)
[2016-12-23] MEDS ORDERED: PROM25SU28 PR (16:08)
[2016-12-23] MEDS ORDERED: NITR1CAP16 PO (16:08)
--- NOTE | 2016-12-23 16:09 | EMERGENCY ROOM VISIT NOTE ---
History Report prepared by [place]: Yuniel Almanza Under the Supervision of: Dr. Demetrius Gibson M.D. First contact with patient: 12:34 Chief Complaint: VOMITING Stated Complaint: CONSTANT VOMITING, C-DIFF History of Present Illness The patient is a 21 year old white female with a past medical history of C Diff who presents to the ED with a cc of persistent vomiting beginning two days ago. No blood in the vomit. Positive diarrhea, chills, "sharp" abdominal pain, and nausea. Negative hematochezia, urinary symptoms, or fever. Seen in the ED about a week ago for similar symptoms. Had a negative CT abdomen at this time. She was tested for C Diff again at this time, and was called a few days ago and told that she was positive. Similar symptoms associated with her previous C Diff. On third day of oral antibiotics. Denies eating or drinking anything abnormal. No recent trauma. Source of History: patient Onset: Two days ago Associated Symptoms: + chills, + abdominal pain ("sharp"), + diarrhea, No fevers, No hematochezia, No urinary symptoms Review of Systems See HPI for pertinent positives and negatives. A total of ten systems were reviewed and were otherwise negative. Past Medical & Surgical Medical Problems: (1) Anxiety (2) GERD (gastroesophageal reflux disease) Surgical Problems: (1) H/O arthroscopic knee surgery Family History FH: cancer FH: lung disease FHx: gallbladder disease Heart disease Hypertension Kidney disease Kidney stones Social History Smoking Status: Never Smoker Alcohol Use: none Drug Use: none Marital Status: single Housing Status: lives with family Occupation Status: employed Current/Historical Medications Scheduled Escitalopram Oxalate (Escitalopram Oxalate), 10 MG PO QPM Nitrofurantoin Monohyd Macro (Macrobid), 1 CAP PO BID Ondansetron (Ondansetron HCl), 4 MG PO Q6H Promethazine Hcl (Phenergan), 1 TAB PO Q6 Tramadol Hcl (Ultram), 50-100 MG PO Q4H Vancomycin Hcl (Vancomycin), 125 MG PO QID Scheduled PRN Cyclobenzaprine Hcl (Flexeril), 5 MG PO TID PRN for Muscle Spasm Oxycodone/Acetaminophen 5MG/325MG (Percocet 5MG/325MG), 1-2 TAB PO Q4H PRN for Pain Promethazine Hcl (Phenergan Suppository), 25 MG KY Q6H PRN for Nausea Allergies Coded Allergies: Penicillins (Unverified Allergy, Intermediate, hives, 12/16/16) Amoxicillin (Verified Allergy, Mild, HIVES, 12/16/16) Physical Exam Vital Signs Date Time Temp Pulse Resp B/P (MAP) Pulse Ox O2 Delivery O2 Flow Rate FiO2 12/23/16 16:46 95 18 129/86 98 Room Air 12/23/16 15:54 78 18 139/83 98 Room Air 12/23/16 15:28 72 18 121/72 98 Room Air 12/23/16 13:30 73 12/23/16 12:32 36.7 77 16 103/70 100 Room Air Physical Exam GENERAL: Awake, alert, mildly ill-appearing, NAD HENT: Normocephalic, atraumatic. EYES: Normal conjunctiva. Sclera non-icteric. NECK: Supple. No nuchal rigidity. FROM. RESPIRATORY: CTAB, no rhonchi, wheezing, crackles CARDIAC: RRR, no MRG ABDOMEN: Soft, ND, BS+. Mild periumbilical and left sided abdominal pain. Positive obturators, negative psoas and Sullivan's sign. MSK: No chest wall TTP, no LE edema NEURO: GCS 15, CN 2-12 intact, moves all 4s on command SKIN: No rash or jaundice noted. Medical Decision & Procedures ER Provider Diagnostic Interpretation: CT: Radiology results as stated below per my review and radiologist interpretation ABD/PELVIS IV CONTRAST ONLY FINDINGS: Lung bases are clear. There is no pneumoperitoneum identified. The inferior cardiac chambers are unremarkable. The liver, spleen, pancreas, adrenal glands and gallbladder are unremarkable. Kidneys, ureters, urinary bladder, uterus and adnexa are unremarkable. Trace free pelvic fluid is likely physiologic. The abdominal aorta is normal in both course and caliber without aneurysm or dissection. No bulky adenopathy. No bowel obstruction or focal bowel wall thickening. The appendix seen within the abdominal right lower quadrant and is air-filled, noninflamed and nondilated. No right lower quadrant inflammatory changes. Soft tissues are unremarkable. Bones are intact. There is mild convex right curvature of the lumbar spine. There is moderate fragmentation and lucency of the pubic symphysis. IMPRESSION: 1. No acute intra-abdominal or intrapelvic abnormality identified, specifically the appendix appears normal. 2. Moderate fragmentation and lucency of the pubic symphysis suggests osteitis pubis. The above report was generated using voice recognition software. It may contain grammatical, syntax or spelling errors. Electronically signed by: Ryley Haney M.D. 12/23/2016 2:58 PM Laboratory Results 12/23/16 13:15 Red Blood Count 4.71, Mean Corpuscular Volume 87.5, Mean Corpuscular Hemoglobin 29.5, Mean Corpuscular Hemoglobin Concent 33.7, Mean Platelet Volume 9.6, Neutrophils (%) (Auto) 69.5, Lymphocytes (%) (Auto) 23.8, Monocytes (%) (Auto) 5.4, Eosinophils (%) (Auto) 0.9, Basophils (%) (Auto) 0.3, Neutrophils # (Auto) 5.19, Lymphocytes # (Auto) 1.78, Monocytes # (Auto) 0.40, Eosinophils # (Auto) 0.07, Basophils # (Auto) 0.02 12/23/16 13:15 Test 12/23/16 13:15 12/23/16 13:30 White Blood Count 7.47 K/uL (4.8-10.8) Red Blood Count 4.71 M/uL (4.2-5.4) Hemoglobin 13.9 g/dL (12.0-16.0) Hematocrit 41.2 % (37-47) Mean Corpuscular Volume 87.5 fL (80-100) Mean Corpuscular Hemoglobin 29.5 pg (25-34) Mean Corpuscular Hemoglobin Concent 33.7 g/dl (32-36) Platelet Count 231 K/uL (130-400) Mean Platelet Volume 9.6 fL (7.4-10.4) Neutrophils (%) (Auto) 69.5 % Lymphocytes (%) (Auto) 23.8 % Monocytes (%) (Auto) 5.4 % Eosinophils (%) (Auto) 0.9 % Basophils (%) (Auto) 0.3 % Neutrophils # (Auto) 5.19 K/uL (1.4-6.5) Lymphocytes # (Auto) 1.78 K/uL (1.2-3.4) Monocytes # (Auto) 0.40 K/uL (0.11-0.59) Eosinophils # (Auto) 0.07 K/uL (0-0.5) Basophils # (Auto) 0.02 K/uL (0-0.2) RDW Standard Deviation 45.0 fL (36.4-46.3) RDW Coefficient of Variation 14.0 % (11.5-14.5) Immature Granulocyte % (Auto) 0.1 % Immature Granulocyte # (Auto) 0.01 K/uL (0.00-0.02) Anion Gap 7.0 mmol/L (3-11) Est Creatinine Clear Calc Drug Dose 85.3 ml/min Estimated GFR () 99.9 Estimated GFR (Non- 86.2 BUN/Creatinine Ratio 12.1 (10-20) Calcium Level 9.2 mg/dl (8.5-10.1) Total Bilirubin 0.6 mg/dl (0.2-1) Direct Bilirubin 0.2 mg/dl (0-0.2) Aspartate Amino Transf (AST/SGOT) 15 U/L (15-37) Alanine Aminotransferase (ALT/SGPT) 20 U/L (12-78) Alkaline Phosphatase 78 U/L (45-117) Total Protein 7.4 gm/dl (6.4-8.2) Albumin 4.0 gm/dl (3.4-5.0) Lipase 92 U/L (73-393) Urine Color DK YELLOW Urine Appearance CLOUDY (CLEAR) Urine pH 6.0 (4.5-7.5) Urine Specific [place] 1.029 (1.000-1.030) Urine Protein NEG (NEG) Urine Glucose (UA) NEG (NEG) Urine Ketones 3+ (NEG) Urine Occult Blood NEG (NEG) Urine Nitrite NEG (NEG) Urine Bilirubin NEG (NEG) Urine Urobilinogen NEG (NEG) Urine Leukocyte Esterase MODERATE (NEG) Urine WBC (Auto) >30 /hpf (0-5) Urine RBC (Auto) 0-4 /hpf (0-4) Urine Hyaline Casts (Auto) 1-5 /lpf (0-5) Urine Epithelial Cells (Auto) >30 /lpf (0-5) Urine Bacteria (Auto) 2+ (NEG) Urine Pathogenic Casts /lpf (0) Urine Mucus PRESENT (NONE PRSENT) Urine Test NEG (NEG) Laboratory results reviewed by me Medications Administered Medications (Trade) Dose Ordered Sig/Kim Route Start Time Stop Time Status Last Admin Dose Admin Sodium Chloride 1,000 ml @ 999 mls/hr Q1H1M STAT IV 12/23/16 13:03 12/23/16 14:03 DC 12/23/16 13:30 999 MLS/HR Prochlorperazine Edisylate (Compazine Inj) 10 mg NOW STAT IV 12/23/16 13:03 12/23/16 13:06 DC 12/23/16 13:29 10 MG Morphine Sulfate (MoRPHine SULFATE INJ) 4 mg NOW STAT IV 12/23/16 13:03 12/23/16 13:06 DC 12/23/16 13:30 4 MG Sodium Chloride 1,000 ml @ 999 mls/hr Q1H1M STAT IV 12/23/16 13:59 12/23/16 14:59 DC 12/23/16 14:23 999 MLS/HR Ceftriaxone Sodium (Rocephin Inj) 1 gm NOW STAT IV 12/23/16 14:43 12/23/16 14:45 DC 12/23/16 15:27 1 GM ED Course 1251: The patient was evaluated in room C3. A complete history and physical exam was performed. 1303: Ordered Morphine Sulfate 4 mg IV, Compazine Inj 10 mg IV, Sodium Chloride 1000 ml @ 999 mls/hr IV. 1359: Ordered Sodium Chloride 1000 ml @ 999 mls/hr IV. 1443: Ordered Rocephin Inj 1 gm IV. 1530: I reevaluated the patient. She is tolerating PO intake. Discussed results and discharge instructions: she verbalized understanding and agreement. The patient is ready for discharge. Medical Decision The patient is a 21 year old white female with a past medical history of C Diff who presents to the ED with a cc of persistent vomiting beginning two days ago. Differential diagnosis: Etiologies such as c difficile colitis, appendicitis, diverticulitis, PUD, biliary pathology, UTI, pancreatitis, obstruction, mesenteric ischemia, aortic pathology, infections, inflammatory bowel disease, renal colic, as well as others were entertained. Patient was seen and evaluated bedside. Of note patient has a history of C. difficile and has been started on by mouth vancomycin. Patient has been having some diarrhea as well as some nausea and vomiting. Patient denies any drug or alcohol or tobacco use. Of note patient also does not use any marijuana. Patient's labwork fairly unremarkable. Patient did have a UA although with epithelial cells concerning for infection especially given her abdominal pain with nausea and vomiting. Patient did have a CT abdomen and pelvis which does not show anything acute but did show some osteitis pubis. Patient was informed of this finding was told she may apply ice packs and take Motrin and Tylenol as needed. Patient was feeling much improved and able tolerate by mouth. Patient was told to continue to take her by mouth vancomycin as well as the antibiotic for her UTI. Patient was given strict follow-up, discharge, and return precautions. Patient was also told to take a probiotic and/or yogurt as needed. She is agreeable with plan of care and also stated she would follow up with their development manager. Discharged to home. Medication Reconcilliation Current Medication List: was personally reviewed by me Blood Pressure Screening Patient's blood pressure: Normal blood pressure Blood pressure disposition: Did not require urgent referral Impression Primary Impression: Nausea & vomiting Additional Impressions: UTI (urinary tract infection) Abdominal pain Scribe Attestation The scribe's documentation has been prepared under my direction and personally reviewed by me in its entirety. I confirm that the note above accurately reflects all work, treatment, procedures, and medical decision making performed by me. Departure Information Dispostion Home / Self-Care Prescriptions Promethazine Hcl (PHENERGAN) 12.5 Mg Tab 1 TAB PO Q6 for 4 Days, #12 TAB Prov: Demetrius Gibson M.D. 12/23/16 Promethazine Hcl (PHENERGAN SUPPOSITORY) 25 Mg Supp 25 MG KY Q6H Y for Nausea, #10 SUPP Prov: Demetrius Gibson M.D. 12/23/16 Nitrofurantoin Monohyd Macro (MACROBID) 100 Mg Cap 1 CAP PO BID for 7 Days, #14 CAP Prov: Demetrius Gibson M.D. 12/23/16 Referrals Jaci Espinoza M.D. (PCP) Patient Instructions ED UTI Cystitis Female, My [facility] Additional Instructions Please return to the emergency department if you have worsening or recurrent symptoms not amenable to at-home treatment. Please call for a follow-up appointment with her primary care physician. Please take your medications as prescribed. If you have other concerns and/or complaints please feel free to also call your primary care physician's office or return the ED for further evaluation, management, and treatment. You received narcotic or benzodiazepene medication while in the emergency room today. This is an addictive medication that may cause drowziness as well as constipation. Do not drive, operate heavy machinery, or drink alcohol under the influence of this medication. You may take tylenol 1000mg every 6 hours for pain. Take anti-nausea medicine as prescribed. Please consider taking a probiotic or yogurt. You have been examined and treated today on an emergency basis only. This is not a substitute for, or an effort to provide, complete comprehensive medical care. It is impossible to recognize and treat all injuries or illnesses in a single emergency department visit. It is therefore important that you follow up closely with [facility]. Call as soon as possible for an appointment. Thank you for your time and consideration. I look forward to speaking with you again soon. Please don't hesitate to call us if you have any questions. Problem Qualifiers Primary Impression: Nausea & vomiting Vomiting type: unspecified Vomiting Intractability: non-intractable Qualified Codes: R11.2 - Nausea with vomiting, unspecified Additional Impressions: UTI (urinary tract infection) Urinary tract infection type: acute cystitis Hematuria presence: without hematuria Qualified Codes: N30.00 - Acute cystitis without hematuria Abdominal pain Abdominal location: periumbilical Qualified Codes: R10.33 - Periumbilical pain
[2016-12-23 16:46] VITALS: BP 129/86; PULSE 95; O2SAT 98
== END 2016-12-23 17:46 | disposition home or self-care (01) ==
LOC: C.EDB 12:13
DX: R11.2 Nausea with vomiting, unspecified (principal); N30.00 Acute cystitis without hematuria; R10.33 Periumbilical pain; F41.9 Anxiety disorder, unspecified; K21.9 Gastro-esophageal reflux disease without esophagitis; Z80.9 Family history of malignant neoplasm, unspecified; Z83.6 Family history of other diseases of the respiratory system; Z83.79 Family history of other diseases of the digestive system; Z84.1 Family history of disorders of kidney and ureter; Z79.899 Other long term (current) drug therapy

== ENCOUNTER → 2017-05-16 | Outpatient (CLI) | payer OTHER ==
[~2017-05-16] MED LIST changes: -ONDA4TAB10 SL; +ONDA4TAB9 PO; -OXYC-57 PO; +PROM25SU28 PR; +TRAM-453 PO; -ULT50 PO
[2017-05-16 12:35] LABS: BASO % 0.7 %; BASO ABS # 0.04 K/uL (0-0.2); EOS % 3.4 %; HEMATOCRIT 40.4 % (37-47); HEMOGLOBIN 13.7 g/dL (12.0-16.0); IG# 0.01 K/uL (0.00-0.02); LYMPH % 39.8 %; LYMPH ABS # 2.31 K/uL (1.2-3.4); MEAN CELL VOLUME 89.6 fL (80-100); MEAN CORPUSCULAR HEMOGLOBIN 30.4 pg (25-34); MEAN CORPUSCULAR HGB CONC 33.9 g/dl (32-36); MEAN PLATELET VOLUME 10.5 fL (7.4-10.4); MONO % 6.9 %; NEUT ABS # 2.84 K/uL (1.4-6.5); PLATELET COUNT 246 K/uL (130-400); RED CELL DISTRIBUTION WIDTH CV 13.8 % (11.5-14.5); RED CELL DISTRIBUTION WIDTH SD 45.4 fL (36.4-46.3)
[2017-05-16 12:59] LABS: ALBUMIN 4.1 gm/dl (3.4-5.0); BLOOD UREA NITROGEN 13 mg/dl (7-18); CALCIUM 8.8 mg/dl (8.5-10.1); CARBON DIOXIDE 24 mmol/L (21-32); CREATININE 0.82 mg/dl (0.60-1.20); GLUCOSE 80 mg/dl (70-99); POTASSIUM 3.8 mmol/L (3.5-5.1); SODIUM 137 mmol/L (136-145)
[2017-05-16 13:13] LABS: ALKALINE PHOSPHATASE 70 U/L (45-117); ALT/SGPT 23 U/L (12-78); AST/SGOT 11 U/L (15-37); TOTAL PROTEIN 7.3 gm/dl (6.4-8.2)
== END | disposition home or self-care (01) ==
LOC: C.LABBFT 09:32
PROVIDERS: ATTEND Internal Medicine
DX: R63.4 Abnormal weight loss (principal); A04.72 Enterocolitis due to Clostridium difficile, not specified as recurrent; R19.7 Diarrhea, unspecified

== ENCOUNTER → 2017-05-24 | Outpatient (CLI) | payer OTHER | END | disposition home or self-care (01) | LOC: C.LAB 10:41 | PROVIDERS: ATTEND Physician Assistant | DX: A04.72 Enterocolitis due to Clostridium difficile, not specified as recurrent (principal) ==

== ENCOUNTER 2017-07-16 15:41 | Emergency (ER) | payer OTHER ==
[~2017-07-16] VITALS: Ht 157.5 cm; Wt 70.2 kg
[~2017-07-16 15:41] MED LIST changes: -PROM25SU28 PR
[2017-07-16 15:47] VITALS: BP 111/80; PULSE 89; TEMP 36.8; O2SAT 95; Ht 157.5 cm; Wt 70.2 kg
[2017-07-16] MEDS ORDERED: KETOROLAC TROMETHAMINE 60 MG/2 ML VIAL IM STA (16:07)
[2017-07-16] MEDS ORDERED: HYDROCODONE/ACETAMIN 5/325MG TAB PO ONE (16:15)
[2017-07-16] MEDS ORDERED: DEXAMETHASONE **PF** INJ 10 MG/ML VIAL IM ONE (16:15)
[2017-07-16] MEDS ORDERED: LXP/20 PO (16:26)
--- NOTE | 2017-07-16 16:49 | DIAGNOSTIC IMAGING REPORT ---
L-SPINE MIN 4 VIEWS ROUTINE HISTORY: Pain low back pain with right side sciatica COMPARISON: 10/01/2016 FINDINGS: There is no fracture. No subluxation. Disc spaces are preserved. IMPRESSION: No fracture or subluxation within the lumbar spine. The above report was generated using voice recognition software. It may contain grammatical, syntax or spelling errors. Electronically signed by: Herb Wang M.D. 07/16/2017 4:48 PM Dictated Date/Time: 07/16/2017 4:48 PM
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
== END 2017-07-16 17:28 | disposition home or self-care (01) ==
LOC: C.EDB 15:43 → C.EDD 17:28
DX: M54.41 Lumbago with sciatica, right side (principal); F41.9 Anxiety disorder, unspecified; Z98.890 Other specified postprocedural states; Z82.49 Family history of ischemic heart disease and other diseases of the circulatory system; Z84.1 Family history of disorders of kidney and ureter; Z79.899 Other long term (current) drug therapy

== ENCOUNTER → 2017-08-06 | Outpatient (CLI) | payer OTHER ==
[~2017-08-06] MED LIST changes: +LXP/20 PO; -LXP10 PO; -ONDA4TAB9 PO; -TRAM-453 PO
[2017-08-06 18:59] LABS: BASO % 0.5 %; BASO ABS # 0.04 K/uL (0-0.2); EOS % 3.5 %; EOS ABS # 0.28 K/uL (0-0.5); HEMATOCRIT 41.3 % (37-47); HEMOGLOBIN 13.8 g/dL (12.0-16.0); IG# 0.01 K/uL (0.00-0.02); LYMPH % 38.2 %; LYMPH ABS # 3.07 K/uL (1.2-3.4); MEAN CELL VOLUME 88.4 fL (80-100); MEAN CORPUSCULAR HEMOGLOBIN 29.6 pg (25-34); MEAN CORPUSCULAR HGB CONC 33.4 g/dl (32-36); MEAN PLATELET VOLUME 9.7 fL (7.4-10.4); MONO % 5.6 %; MONO ABS # 0.45 K/uL (0.11-0.59); NEUT % 52.1 %; NEUT ABS # 4.19 K/uL (1.4-6.5); PLATELET COUNT 297 K/uL (130-400); RED CELL DISTRIBUTION WIDTH CV 13.4 % (11.5-14.5); RED CELL DISTRIBUTION WIDTH SD 43.4 fL (36.4-46.3); WHITE BLOOD COUNT 8.04 K/uL (4.8-10.8)
== END | disposition home or self-care (01) ==
LOC: C.LAB 18:05
PROVIDERS: ATTEND Physician Assistant Medical
DX: M25.561 Pain in right knee (principal)

== ENCOUNTER 2017-11-17 11:36 | Emergency (ER) | payer OTHER ==
[~2017-11-17] VITALS: Ht 157.5 cm; Wt 67.6 kg
[2017-11-17 11:38] VITALS: TEMP 36.7; Ht 157.5 cm; Wt 67.6 kg
[2017-11-17] MEDS ORDERED: TRAMADOL HCL 50 MG TAB PO STA (11:58)
[2017-11-17] MEDS ORDERED: KETOROLAC TROMETHAMINE 60 MG/2 ML VIAL IM STA (11:58)
[2017-11-17] MEDS ORDERED: ONDANSETRON 4MG OD TAB PO ONE (12:00)
[2017-11-17] MEDS ORDERED: TRAM-10 PO (12:13)
[2017-11-17 12:28] VITALS: BP 117/72; PULSE 77; O2SAT 99
--- NOTE | 2017-11-17 21:24 | EMERGENCY ROOM VISIT NOTE ---
History First contact with patient: 11:42 Chief Complaint: ABDOMINAL PAIN Stated Complaint: PAIN BELOW STOMACH, HURTS TO BREATHE OR MOVE Nursing Triage Summary: Pt. arrives with c/o of lower abdominal/pubic pain. Pt. states pain started last night at 2100 after lifting a heavy object. Pt. rates pain 9/10 - describes pain a "pressure pain" History of Present Illness The patient is a 22 year old female who presents to the Emergency Room with complaints of lower abdominal pain after lifting and trying to move a toddler bed herself last evening. The patient reports that she was moving the bed, she felt a burning sensation in the abdomen. The patient reports that the pain has not improved. The patient has not applied any ice to the abdomen, and has not taken any medications for her pain. The patient reports nausea from the pain. The pain is worsened when she tries to sit up. It is improved when she lays down and rests. She denies any prior history of abdominal wall injuries. She denies history of or other abdominal surgeries. She rates her discomfort a 9 out of 10. Review of Systems 10 system review was performed and was negative except for pertinent positives and negatives as indicated in history of present illness Past Medical/Surgical History Medical Problems: (1) Anxiety (2) GERD (gastroesophageal reflux disease) Surgical Problems: (1) H/O arthroscopic knee surgery Family History FH: cancer FH: lung disease FHx: gallbladder disease Heart disease Hypertension Kidney disease Kidney stones Social History Smoking Status: Never Smoker Alcohol Use: none Drug Use: none Marital Status: single Housing Status: lives with family Occupation Status: employed Current/Historical Medications Scheduled Escitalopram Oxalate (Escitalopram Oxalate), 20 MG PO DAILY Scheduled PRN Cyclobenzaprine Hcl (Flexeril), 5 MG PO TID PRN for Muscle Spasm Tramadol (Ultram), 1 TAB PO Q4H PRN for Pain Physical Exam Vital Signs Date Time Temp Pulse Resp B/P (MAP) Pulse Ox O2 Delivery O2 Flow Rate FiO2 11/17/17 12:28 77 18 117/72 99 Room Air 11/17/17 11:38 36.7 88 19 130/79 97 Room Air Physical Exam CONSTITUTIONAL: Healthy and well nourished. Alert and oriented X 3 with positive affect. Patient appears in mild to moderate discomfort. HEENT: Normocephalic, atraumatic. Pupils equal, round and reactive. NECK: Full active range of motion without discomfort. RESPIRATORY: Clear to auscultation bilaterally with no wheezing, crackles, rhonchi or stridor. No worsening pain with deep breathing. CARDIOVASCULAR: Regular rate and rhythm with no murmurs, rubs or gallops. GASTROINTESTINAL: Examination shows tenderness to palpation through the middle to lower abdominal wall. When the patient attempts to sit up, she complains of significant pain. No ecchymosis noted. Negative Rovsing sign. Negative CVA tenderness. No rigidity, guarding or rebound. MUSCULOSKELETAL: Full range of motion of all joints without discomfort. INTEGUMENTARY: No rash or other significant dermatologic conditions noted. NEUROLOGIC: No focal neurologic deficits noted. Medical Decision & Procedures Medications Administered Medications (Trade) Dose Ordered Sig/Kim Route Start Time Stop Time Status Last Admin Dose Admin Ketorolac Tromethamine (Toradol Inj) 60 mg NOW STAT IM 11/17/17 11:58 11/17/17 12:01 DC 11/17/17 12:09 60 MG Ondansetron HCl (Zofran Odt) 4 mg ONE ONCE PO 11/17/17 12:00 11/17/17 12:01 DC 11/17/17 12:10 4 MG Tramadol HCl (Ultram Tab) 50 mg ONE STAT PO 11/17/17 11:58 11/17/17 12:01 DC 11/17/17 12:10 50 MG ED Course Patient history and physical exam were performed. Nurse's notes were reviewed. Vital signs were reviewed and were normal. Patient history and clinical exam findings are consistent with an abdominal wall strain. The patient had immediate onset of discomfort while lifting a heavy object. I did discuss the possibility of an abdominal wall hernia, physical exam is not suggestive of this extent of injury. She was encouraged to follow-up with her PCP as needed for further management. The patient was administered IM Toradol and oral Ultram for pain. She was provided a prescription for tramadol, and instructed to alternate ibuprofen and Tylenol for baseline pain relief. She was instructed to avoid heavy lifting or other strenuous activities. The patient was happy with plan of care, voiced understanding of all discharge instructions , and rated her discomfort a 5 out of 10 at the conclusion of my exam. Medical Decision See previous section [place] Drug Monitoring Program Search Results: patient reviewed within database, no issues identified Medication Reconcilliation Current Medication List: was personally reviewed by me Blood Pressure Screening Patient's blood pressure: Normal blood pressure Impression Primary Impression: Abdominal wall strain Departure Information Prescriptions Tramadol (Ultram) 50 Mg Tab 1 TAB PO Q4H Y for Pain, #15 TAB For Initial Treatment Prov: Imtiaz Gallagher PA 11/17/17 Referrals Jaci Espinoza M.D. (PCP) Patient Instructions My [facility] Problem Qualifiers Primary Impression: Abdominal wall strain Encounter type: initial encounter Qualified Codes: S39.011A - Strain of muscle, fascia and tendon of abdomen, initial encounter
== END 2017-11-17 12:30 | disposition home or self-care (01) ==
LOC: C.EDB 11:37 → C.EDA 12:30
DX: S39.011A Strain of muscle, fascia and tendon of abdomen, initial encounter (principal); X50.0XXA Overexertion from strenuous movement or load, initial encounter; R11.0 Nausea; Z79.899 Other long term (current) drug therapy

== ENCOUNTER 2020-10-02 11:34 | Inpatient (IN) ==
[2020-10-02] MEDS ORDERED: busPIRone 7.5 MG TAB PO STA (12:11)
[2020-10-02 12:17] LABS: Appearance Urine Clear (Clear); Bacteria Urine Automated Negative (Negative); Bilirubin Urine Negative (Negative); Blood Urine Negative (Negative); Color Urine Yellow; Epithelial Cell Urine Auto >30 /lpf (0-5); Glucose Urine UA Negative (Negative); Ketones Urine Negative (Negative); Leukocyte Esterase Urine 1+ (Negative); Nitrite Urine Negative (Negative); Protein Urine Negative (Negative); RBC Urine Automated 0-4 /hpf (0-4); Urobilinogen Urine Negative (Negative)
[2020-10-02 12:23] LABS: Basophils # (auto) 0.04 K/uL (0-0.2); Basophils % (auto) 0.4 %; Eosinophils # (auto) 0.31 K/uL (0-0.5); Hematocrit (blood only) 42.1 % (37-47); Hemoglobin 14.4 g/dL (12.0-16.0); Immature Granulocytes # (auto) 0.01 K/uL (0.00-0.02); Immature Granulocytes % (auto) 0.1 %; Lymphocytes # (auto) 1.56 K/uL (1.2-3.4); Lymphocytes % (auto) 15.1 %; Mean Corpuscular Hemoglobin 29.9 pg (25-34); Mean Corpuscular Hgb Conc 34.2 g/dL (32-36); Mean Corpuscular Volume 87.5 fL (80-100); Mean Platelet Volume 9.6 fL (7.4-10.4); Monocytes # (auto) 0.48 K/uL (0.11-0.59); Monocytes % (auto) 4.6 %; Neutrophils # (auto) 7.94 K/uL (1.4-6.5); Neutrophils % (auto) 76.8 %; Platelet Count 295 K/uL (130-400); RDW Coefficient of Variation 13.9 % (11.5-14.5); Red Blood Count 4.81 M/uL (4.2-5.4); White Blood Count 10.34 K/uL (4.8-10.8)
--- NOTE | 2020-10-02 12:32 | Emergency Department Note ---
Impression & Plan Mood disorder ED Provider Note NAME: GABBY GONZALEZ AGE: 24 SEX: F : 1995 ARRIVES VIA: Walk-In INFORMANT: Patient, mother ED PROVIDER(S): Hemal Ridley MD CHIEF COMPLAINT: Mood disorder HPI: This is a 24-year-old female who presents emergency department with her mother over concerns that the patient is feeling suicidal. The patient was sent in by her therapist. The patient reports she has been seeing her therapist once a week for the past 4 weeks. Her mother reports that the patient has gone th rough a bad break-up. The patient reports she has a plan to take pills. She is on multiple medications including buspirone Escitalopram and control. Patient reports she has not missed any doses of her medication. She reports nothing makes the feelings any better or worse. ROS: See above HPI for pertinent positives & negatives. A total of 10 systems reviewed and were otherwise negative. PAST MEDICAL HISTORY: See Below PAST SURGICAL HISTORY: See Below FAMILY HISTORY: See Below SOCIAL HISTORY: See Below HOME MEDICATIONS: See Below ALLERGIES: See Below VITALS: See Below PHYSICAL EXAMINATION: VITAL SIGNS - Vital signs and nursing notes were reviewed. GENERAL - 24-year-old female appearing stated age who is in no acute distress. Communicates well with provider and answers questions appropriately. SKIN - Without rashes. HEAD - NC/AT. EYES - PERRL with EOMI bilaterally. Sclera anicteric. Palpebral conjunctiva pink and moist with no injection noted. EARS - No deformities of external structures noted on gross examination bilaterally. NOSE - Midline and without cyanosis. No epistaxis or purulent drainage noted. Septum midline without deviation or septal hematoma noted. MOUTH/OROPHARYNX - Without perioral cyanosis. Buccal mucosa pink and moist and without leukoplakia. Tongue midline with equal elevation of palate bilaterally. No tonsillar hypertrophy, erythema, or exudates noted. NECK - Neck with FROM. Supple to palpation. No nuchal rigidity. LUNGS - Chest wall symmetric without accessory muscle use, intercostals retractions, or central cyanosis. Normal vesicular breath sounds CTA B/L. No wheezes, rales, or rhonchi appreciated. CARDIAC - RRR with S1/S2. No murmur, rubs, or gallops appreciated. ABDOMEN - Abdominal contour without pulsations or visible masses. BS normoactive all four quadrants. No tenderness, palpable masses, h epatosplenomegaly, or ascites noted. EXTREMITIES - No clubbing or peripheral cyanosis. No pretibial edema present. +3/5 radial, posterior tibial, and dorsalis pedis pulses palpated throughout. +5/5 strength noted in UE/LE bilaterally. NEUROLOGIC - Cranial nerves II through XII grossly intact. Sensory intact to light touch throughout. Patellar reflexes +2/4. PSYCH - A&Ox3 and cooperates fully with examiner. Pt is very pleasant and interacts well with examiner. MEDICAL DECISION MAKING: Patient was seen and evaluated as above in room A7. Review was performed of nursing notes and vital signs. I did review pertinent previous visits and patient history. After obtaining a thorough history and physical examination the above work up was performed. This is a 24-year-old female who presents emergency department complaining of mood disorder. The patient is feeling suicidal and does have a plan. She was medically cleared by me and independently evaluated by psychiatric case management. The patient was subsequently accepted to [facility]. The patient was evaluated during a period of high volume and high acuity during the global COVID-19 pandemic, and that diagnosis was suspected/considered upon their initial presentation. Their evaluation, treatment and testing was consistent with current guidelines for patients who present with complaints or symptoms that may be related to COVID-19. Patient was seen while provider was wearing PPE. Triage Nursing notes reviewed. Prior medical records reviewed Vital Signs: reviewed and remarkable for no significant abnormalities Differential diagnosis: Mood disorder, infection, hypoglycemia, electrolyte abnormalities, cardiac sources, intracerebral event, toxicologic, trauma, neurologic, as well as other pathologies. ER treatment provided: See below Past Med/Surg History Medical History Anxiety C. difficile diarrhea Carpal tunnel syndrome GERD (gastroesophageal reflux disease) Wrist pain Surgical History S/P knee surgery S/P nerve repair Family History Aunt Breast cancer Grandmother Lung cancer Uncle Crohn's disease Denies family history of Ovarian cancer Prostate cancer Myocardial infarction Colorectal cancer Social History Smoking Status: Never smoker Hx Alcohol Use: No Hx Substance Use: No Preferred Language: Sammarinese Communication Ability: Effective Visual Impairment: No Limitations Hearing Ability: Normal Cigar Brander Required: No Beliefs That Will Affect Care: None marital status: Single Current Living Situation: Parent and Family current occupational status: employed current occupation: works for [employer] Feels Safe at Home: Yes Childhood Exposure to Second-Hand Smoke: No Dental Care, Regularly: No Physical Activity Frequency: 3-4 Times per Week Seatbelt Use: always Assistive Devices: None Allergies Allergies Allergy/AdvReac Type Severity Reaction Status Date / Time Penicillins Allergy Intermediate Hives Verified 06/26/20 11:29 amoxicillin Allergy Mild Hives Verified 06/26/20 11:29 sulfamethoxazole Allergy Verified 06/26/20 11:29 [From Bactrim] trimethoprim [From Bactrim] Allergy Verified 06/26/20 11:29 Home Meds Home Medications Medication Instructions Recorded Confirmed norgestimate 0.25 mg-ethinyl 1 tab PO DAILY 07/03/20 10/02/20 estradiol 35 mcg tablet escitalopram oxalate [Lexapro] 15 mg PO DAILY 10/02/20 10/02/20 hydroxyzine HCl 10 - 20 mg Q4 PRN 10/02/20 10/03/20 albuterol sulfate 1 puff INHALATION Q4 PRN 10/03/20 10/03/20 Previous Rx's Medication Instructions Recorded buspirone 15 mg tablet 15 mg PO TID #270 tab 09/14/20 Results & Data (ED) Vital Signs Vital Signs - 24 hr 10/02/20 11:37 Temperature 37.1 C Temperature Source Temporal Artery Scan Pulse Rate 78 Pulse Rhythm Regular Respiratory Rate 18 Respiratory Effort / Characteristics Non-Labored Spontaneous Respiratory Depth Normal Respiratory Pattern Regular Blood Pressure 126/88 Blood Pressure Mean 100 Pulse Oximetry 98 Oxygen Delivery Method Room Air Sepsis Recent Fever Within 48 Hours No Sepsis New/Unexplained Change in Mental Status No Sepsis Action Taken by Nursing No Action Required Laboratory Data Result diagrams: 10/02/20 12:09 10/02/20 12:09 Lab Results 10/02/20 10/02/20 10/02/20 Range/Units 12:00 12:00 12:00 WBC (4.8-10.8) K/uL RBC (4.2-5.4) M/uL Hgb (12.0-16.0) g/dL Hct (37-47) % MCV (80-100) fL MCH (25-34) pg MCHC (32-36) g/dL RDW Std Deviation (36.4-46.3) fL RDW Coeff of Elana (11.5-14.5) % Plt Count (130-400) K/uL MPV (7.4-10.4) fL Immature Gran % (Auto) % Neut % (Auto) % Lymph % (Auto) % Bowman % (Auto) % Eos % (Auto) % Baso % (Auto) % Neut # (Auto) (1.4-6.5) K/uL Lymph # (Auto) (1.2-3.4) K/uL Bowman # (Auto) (0.11-0.59) K/uL Eos # (Auto) (0-0.5) K/uL Baso # (Auto) (0-0.2) K/uL Immature Gran # (Auto) (0.00-0.02) K/uL Sodium (136-145) mmol/L Potassium (3.5-5.1) mmol/L Chloride (98-107) mmol/L Carbon Dioxide (21-32) mmol/L Anion Gap (3-11) BUN (7-18) mg/dl Creatinine (0.6-1.2) mg/dl Est Cr Clr Drug Dosing ml/min Est GFR ( Amer) ml/min Est GFR (Non-Af Amer) ml/min BUN/Creatinine Ratio (10-20) Glucose (70-99) mg/dl Calcium (8.5-10.1) mg/dl Total Bilirubin (0.2-1) mg/dl AST (15-37) U/L ALT (12-78) U/L Alkaline Phosphatase (45-117) U/L Total Protein (6.4-8.2) gm/dl Albumin (3.4-5.0) gm/dl Globulin (2.5-4.0) gm/dl Albumin/Globulin Ratio (0.9-2) TSH (0.300-4.500) uIu/ml HCG, Qual (Negative) Urine Color Yellow Urine Appearance Clear (Clear) Urine pH 8.0 H (4.5-7.5) Ur Specific Sargent 1.020 (1.000-1.030) Urine Protein Negative (Negative) Urine Glucose (UA) Negative (Negative) Urine Ketones Negative (Negative) Urine Blood Negative (Negative) Urine Nitrite Negative (Negative) Urine Bilirubin Negative (Negative) Urine Urobilinogen Negative (Negative) Ur Leukocyte Esterase 1+ H (Negative) Urine WBC (Auto) 1-5 (0-5) /hpf Urine RBC (Auto) 0-4 (0-4) /hpf U Hyaline Cast (Auto) 1-5 (0-5) /lpf U Epithel Cells (Auto) >30 H (0-5) /lpf Urine Bacteria (Auto) Negative (Negative) Salicylates (2.8-20) mg/dl Urine Opiates Screen Neg (Neg) Ur Methadone, Qual Neg (Neg) Acetaminophen (10-30) ug/ml Urine Barbiturates Neg (Neg) Ur Phencyclidine (PCP) Neg (Neg) U Amphetamin/Meth Scrn Neg (Neg) MDMA (Ecstasy) Screen Neg (Neg) U Benzodiazepines Scrn Neg (Neg) Ur Cocaine Metabolite Neg (Neg) U Marijuana (THC) Screen Pos H (Neg) U Marijuana THC Carboxy >5000 H (<5) ng/mL Drug Screen Comment SEE NOTE Ethyl Alcohol mg/dL (0-3) mg/dl COVID-19 Eval Order SARS-CoV-2 (PCR) (Negative) 10/02/20 10/02/20 10/02/20 Range/Units 12:09 12:09 12:09 WBC 10.34 (4.8-10.8) K/uL RBC 4.81 (4.2-5.4) M/uL Hgb 14.4 (12.0-16.0) g/dL Hct 42.1 (37-47) % MCV 87.5 (80-100) fL MCH 29.9 (25-34) pg MCHC 34.2 (32-36) g/dL RDW Std Deviation 45.0 (36.4-46.3) fL RDW Coeff of Elana 13.9 (11.5-14.5) % Plt Count 295 (130-400) K/uL MPV 9.6 (7.4-10.4) fL Immature Gran % (Auto) 0.1 % Neut % (Auto) 76.8 % Lymph % (Auto) 15.1 % Bowman % (Auto) 4.6 % Eos % (Auto) 3.0 % Baso % (Auto) 0.4 % Neut # (Auto) 7.94 H (1.4-6.5) K/uL Lymph # (Auto) 1.56 (1.2-3.4) K/uL Bowman # (Auto) 0.48 (0.11-0.59) K/uL Eos # (Auto) 0.31 (0-0.5) K/uL Baso # (Auto) 0.04 (0-0.2) K/uL Immature Gran # (Auto) 0.01 (0.00-0.02) K/uL Sodium 138 (136-145) mmol/L Potassium 4.0 (3.5-5.1) mmol/L Chloride 108 H (98-107) mmol/L Carbon Dioxide 23 (21-32) mmol/L Anion Gap 7.0 (3-11) BUN 11 (7-18) mg/dl Creatinine 0.85 (0.6-1.2) mg/dl Est Cr Clr Drug Dosing 102.6 ml/min Est GFR ( Amer) 111.9 ml/min Est GFR (Non-Af Amer) 96.6 ml/min BUN/Creatinine Ratio 13.3 (10-20) Glucose 83 (70-99) mg/dl Calcium 9.0 (8.5-10.1) mg/dl Total Bilirubin 0.5 (0.2-1) mg/dl AST 12 L (15-37) U/L ALT 33 (12-78) U/L Alkaline Phosphatase 63 (45-117) U/L Total Protein 7.2 (6.4-8.2) gm/dl Albumin 3.7 (3.4-5.0) gm/dl Globulin 3.5 (2.5-4.0) gm/dl Albumin/Globulin Ratio 1.1 (0.9-2) TSH 0.646 (0.300-4.500) uIu/ml HCG, Qual (Negative) Urine Color Urine Appearance (Clear) Urine pH (4.5-7.5) Ur Specific Sargent (1.000-1.030) Urine Protein (Negative) Urine Glucose (UA) (Negative) Urine Ketones (Negative) Urine Blood (Negative) Urine Nitrite (Negative) Urine Bilirubin (Negative) Urine Urobilinogen (Negative) Ur Leukocyte Esterase (Negative) Urine WBC (Auto) (0-5) /hpf Urine RBC (Auto) (0-4) /hpf U Hyaline Cast (Auto) (0-5) /lpf U Epithel Cells (Auto) (0-5) /lpf Urine Bacteria (Auto) (Negative) Salicylates < 1.7 L (2.8-20) mg/dl Urine Opiates Screen (Neg) Ur Methadone, Qual (Neg) Acetaminophen < 2 L (10-30) ug/ml Urine Barbiturates (Neg) Ur Phencyclidine (PCP) (Neg) U Amphetamin/Meth Scrn (Neg) MDMA (Ecstasy) Screen (Neg) U Benzodiazepines Scrn (Neg) Ur Cocaine Metabolite (Neg) U Marijuana (THC) Screen (Neg) U Marijuana THC Carboxy (<5) ng/mL Drug Screen Comment Ethyl Alcohol mg/dL (0-3) mg/dl COVID-19 Eval Order SARS-CoV-2 (PCR) (Negative) 10/02/20 10/02/20 10/02/20 Range/Units 12:09 12:09 14:05 WBC (4.8-10.8) K/uL RBC (4.2-5.4) M/uL Hgb (12.0-16.0) g/dL Hct (37-47) % MCV (80-100) fL MCH (25-34) pg MCHC (32-36) g/dL RDW Std Deviation (36.4-46.3) fL RDW Coeff of Elana (11.5-14.5) % Plt Count (130-400) K/uL MPV (7.4-10.4) fL Immature Gran % (Auto) % Neut % (Auto) % Lymph % (Auto) % Bowman % (Auto) % Eos % (Auto) % Baso % (Auto) % Neut # (Auto) (1.4-6.5) K/uL Lymph # (Auto) (1.2-3.4) K/uL Bowman # (Auto) (0.11-0.59) K/uL Eos # (Auto) (0-0.5) K/uL Baso # (Auto) (0-0.2) K/uL Immature Gran # (Auto) (0.00-0.02) K/uL Sodium (136-145) mmol/L Potassium (3.5-5.1) mmol/L Chloride (98-107) mmol/L Carbon Dioxide (21-32) mmol/L Anion Gap (3-11) BUN (7-18) mg/dl Creatinine (0.6-1.2) mg/dl Est Cr Clr Drug Dosing ml/min Est GFR ( Amer) ml/min Est GFR (Non-Af Amer) ml/min BUN/Creatinine Ratio (10-20) Glucose (70-99) mg/dl Calcium (8.5-10.1) mg/dl Total Bilirubin (0.2-1) mg/dl AST (15-37) U/L ALT (12-78) U/L Alkaline Phosphatase (45-117) U/L Total Protein (6.4-8.2) gm/dl Albumin (3.4-5.0) gm/dl Globulin (2.5-4.0) gm/dl Albumin/Globulin Ratio (0.9-2) TSH (0.300-4.500) uIu/ml HCG, Qual Negative (Negative) Urine Color Urine Appearance (Clear) Urine pH (4.5-7.5) Ur Specific Sargent (1.000-1.030) Urine Protein (Negative) Urine Glucose (UA) (Negative) Urine Ketones (Negative) Urine Blood (Negative) Urine Nitrite (Negative) Urine Bilirubin (Negative) Urine Urobilinogen (Negative) Ur Leukocyte Esterase (Negative) Urine WBC (Auto) (0-5) /hpf Urine RBC (Auto) (0-4) /hpf U Hyaline Cast (Auto) (0-5) /lpf U Epithel Cells (Auto) (0-5) /lpf Urine Bacteria (Auto) (Negative) Salicylates (2.8-20) mg/dl Urine Opiates Screen (Neg) Ur Methadone, Qual (Neg) Acetaminophen (10-30) ug/ml Urine Barbiturates (Neg) Ur Phencyclidine (PCP) (Neg) U Amphetamin/Meth Scrn (Neg) MDMA (Ecstasy) Screen (Neg) U Benzodiazepines Scrn (Neg) Ur Cocaine Metabolite (Neg) U Marijuana (THC) Screen (Neg) U Marijuana THC Carboxy (<5) ng/mL Drug Screen Comment Ethyl Alcohol mg/dL < 3.0 (0-3) mg/dl COVID-19 Eval Order Covid19 at [facility] SARS-CoV-2 (PCR) (Negative) 10/02/20 Range/Units 14:05 WBC (4.8-10.8) K/uL RBC (4.2-5.4) M/uL Hgb (12.0-16.0) g/dL Hct (37-47) % MCV (80-100) fL MCH (25-34) pg MCHC (32-36) g/dL RDW Std Deviation (36.4-46.3) fL RDW Coeff of Elana (11.5-14.5) % Plt Count (130-400) K/uL MPV (7.4-10.4) fL Immature Gran % (Auto) % Neut % (Auto) % Lymph % (Auto) % Bowman % (Auto) % Eos % (Auto) % Baso % (Auto) % Neut # (Auto) (1.4-6.5) K/uL Lymph # (Auto) (1.2-3.4) K/uL Bowman # (Auto) (0.11-0.59) K/uL Eos # (Auto) (0-0.5) K/uL Baso # (Auto) (0-0.2) K/uL Immature Gran # (Auto) (0.00-0.02) K/uL Sodium (136-145) mmol/L Potassium (3.5-5.1) mmol/L Chloride (98-107) mmol/L Carbon Dioxide (21-32) mmol/L Anion Gap (3-11) BUN (7-18) mg/dl Creatinine (0.6-1.2) mg/dl Est Cr Clr Drug Dosing ml/min Est GFR ( Amer) ml/min Est GFR (Non-Af Amer) ml/min BUN/Creatinine Ratio (10-20) Glucose (70-99) mg/dl Calcium (8.5-10.1) mg/dl Total Bilirubin (0.2-1) mg/dl AST (15-37) U/L ALT (12-78) U/L Alkaline Phosphatase (45-117) U/L Total Protein (6.4-8.2) gm/dl Albumin (3.4-5.0) gm/dl Globulin (2.5-4.0) gm/dl Albumin/Globulin Ratio (0.9-2) TSH (0.300-4.500) uIu/ml HCG, Qual (Negative) Urine Color Urine Appearance (Clear) Urine pH (4.5-7.5) Ur Specific Sargent (1.000-1.030) Urine Protein (Negative) Urine Glucose (UA) (Negative) Urine Ketones (Negative) Urine Blood (Negative) Urine Nitrite (Negative) Urine Bilirubin (Negative) Urine Urobilinogen (Negative) Ur Leukocyte Esterase (Negative) Urine WBC (Auto) (0-5) /hpf Urine RBC (Auto) (0-4) /hpf U Hyaline Cast (Auto) (0-5) /lpf U Epithel Cells (Auto) (0-5) /lpf Urine Bacteria (Auto) (Negative) Salicylates (2.8-20) mg/dl Urine Opiates Screen (Neg) Ur Methadone, Qual (Neg) Acetaminophen (10-30) ug/ml Urine Barbiturates (Neg) Ur Phencyclidine (PCP) (Neg) U Amphetamin/Meth Scrn (Neg) MDMA (Ecstasy) Screen (Neg) U Benzodiazepines Scrn (Neg) Ur Cocaine Metabolite (Neg) U Marijuana (THC) Screen (Neg) U Marijuana THC Carboxy (<5) ng/mL Drug Screen Comment Ethyl Alcohol mg/dL (0-3) mg/dl COVID-19 Eval Order SARS-CoV-2 (PCR) NEGATIVE (Negative) Administered Medications Albuterol (Albuterol Hfa 8 Gm Inhaler) 3 puffs INH Q6H PRN PRN Reason: Wheezing Stop: 11/02/20 03:29 Last Admin: 10/03/20 03:31 Dose: 3 puffs Documented by: [id number] Buspirone HCl (Buspirone 5 Mg Tab) 5 mg PO [id number] COLE Stop: 10/05/20 07:01 Last Admin: 10/04/20 14:20 Dose: 5 mg Documented by: [id number] Hydroxyzine HCl (Hydroxyzine Hcl 25 Mg Tab) 50 mg PO HSZ PRN PRN Reason: Insomnia Stop: 11/01/20 15:36 Last Admin: 10/03/20 21:32 Dose: 50 mg Documented by: [id number] Admin: 10/03/20 02:51 Dose: 50 mg Documented by: [id number] Admin: 10/02/20 21:31 Dose: 50 mg Documented by: [id number] Hydroxyzine HCl (Hydroxyzine Hcl 25 Mg Tab) 25 mg PO Q4H PRN PRN Reason: Anxiety Stop: 11/01/20 15:36 Last Admin: 10/04/20 16:09 Dose: 25 mg Documented by: [id number] Admin: 10/04/20 10:02 Dose: 25 mg Documented by: [id number] Admin: 10/03/20 20:01 Dose: 25 mg Documented by: [id number] Admin: 10/03/20 10:18 Dose: 25 mg Documented by: [id number] Admin: 10/02/20 18:23 Dose: 25 mg Documented by: [id number] Mirtazapine (Mirtazapine Tab 15 Mg Tab) 15 mg PO HS [facility] Stop: 11/02/20 21:59 Last Admin: 10/04/20 21:27 Dose: 15 mg Documented by: [id number] Admin: 10/03/20 21:32 Dose: 15 mg Documented by: [id number] Discontinued Medications Buspirone HCl (Buspirone 7.5 Mg Tab) 15 mg PO NOW STA Stop: 10/02/20 12:12 Last Admin: 10/02/20 12:39 Dose: 15 mg Documented by: [id number] Buspirone HCl (Buspirone 15 Mg Tab) 15 mg PO TID [facility] Stop: 11/01/20 20:59 Last Admin: 10/03/20 08:17 Dose: 15 mg Documented by: [id number] Admin: 10/02/20 21:31 Dose: 15 mg Documented by: [id number] Buspirone HCl (Buspirone 15 Mg Tab) 15 mg PO ONE ONE Stop: 10/03/20 14:01 Last Admin: 10/03/20 13:29 Dose: 15 mg Documented by: [id number] Buspirone HCl (Buspirone 5 Mg Tab) 10 mg PO [id number] [facility] Stop: 11/03/20 06:59 Last Admin: 10/04/20 06:21 Dose: 10 mg Documented by: [id number] Escitalopram Oxalate (Escitalopram Oxalate 10 Mg Tab) 5 mg PO ONE ONE Stop: 10/03/20 09:09 Last Admin: 10/03/20 10:18 Dose: 5 mg Documented by: [id number] Discharge Plan Visit Data Chief Complaint: Mental Health Evaluation Stated Complaint: MENTAL EVAL ED Provider: Hemal Ridley Discharge Problem: Mood disorder Patient Disposition: Admitted As Inpatient Discharge Instructions Interventions: ED Discharge Assessment Last Done: 10/02/20 16:32
[2020-10-02 12:43] LABS: Pregnancy Test, Serum Negative (Negative)
[2020-10-02 12:44] LABS: Albumin Level 3.7 gm/dl (3.4-5.0); BUN Creatinine Ratio 13.3 (10-20); Creatinine Clr Calc Pharmacy 102.6 ml/min; Est GFR (African American) 111.9 ml/min; Est GFR (Non-African American) 96.6 ml/min
[2020-10-02 12:49] LABS: Amphetamines+Metham, Urine Neg (Neg); Barbiturates, Urine Neg (Neg); Benzodiazepine, Urine Neg (Neg); Cocaine, Urine Neg (Neg); MDMA (Ecstacy), Urine Neg (Neg); Methadone, Urine Neg (Neg); Opiate, Urine Neg (Neg); Phencyclidine, Urine Neg (Neg)
[2020-10-02 12:55] LABS: Albumin Globulin Ratio 1.1 (0.9-2); Bilirubin,Total 0.5 mg/dl (0.2-1); Globulin 3.5 gm/dl (2.5-4.0); Thyroid Stimulating Hormone 0.646 uIu/ml (0.300-4.500); Total Protein 7.2 gm/dl (6.4-8.2)
[2020-10-02 12:57] LABS: Acetaminophen < 2 ug/ml (10-30); Salicylate < 1.7 mg/dl (2.8-20)
[2020-10-02] MEDS ORDERED: ACETAMINOPHEN 325 MG TAB PO PRN (15:37)
[2020-10-02] MEDS ORDERED: SODIUM CHLORIDE 0.65% NA SOLN 45 ML (OCEAN) PRN (15:37)
[2020-10-02] MEDS ORDERED: MAGNESIUM HYDROXIDE SUSP 30 ML UDC PO PRN (15:37)
[2020-10-02] MEDS ORDERED: BISMUTH SUBSALICYLATE LIQD 236 ML PO PRN (15:37)
[2020-10-02] MEDS ORDERED: ALUMINUM/MAGNESIUM SUSP 30 ML UDC PO PRN (15:37)
[2020-10-02] MEDS: hydrOXYzine HCl 25 MG TAB PO PRN ×2 (18:23→21:31)
[2020-10-02] MEDS: busPIRone 15 MG TAB PO SCH (21:31)
[2020-10-03] MEDS: hydrOXYzine HCl 25 MG TAB PO PRN ×4 (02:51→21:32)
[2020-10-03] MEDS ORDERED: ALBUTEROL HFA 8 GM INHALER INH PRN (03:17)
[2020-10-03] MEDS: busPIRone 15 MG TAB PO SCH (08:17)
[2020-10-03] MEDS ORDERED: ESCITALOPRAM OXALATE 10 MG TAB PO ONE (09:08)
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
[2020-10-03] MEDS ORDERED: busPIRone 5 MG TAB PO SCH (14:00)
[2020-10-03] MEDS ORDERED: busPIRone 15 MG TAB PO ONE (14:00)
[2020-10-03] MEDS: MIRTAZAPINE TAB 15 MG TAB PO SCH (21:32)
[2020-10-04] MEDS ORDERED: busPIRone 5 MG TAB PO SCH (07:00)
[2020-10-04 08:22] LABS: Marijuana Quant, GCMS Urine >5000 ng/mL (<5)
[2020-10-04] MEDS: hydrOXYzine HCl 25 MG TAB PO PRN ×2 (10:02→16:09)
--- NOTE | 2020-10-04 10:37 | Psychiatric Progress Note ---
Date of Service October 04, 2020 Impression / Recommendations Jessica Valle is a 24 yo trans male who presents with worsening anxiety and now SI on 2 antidepressant trials. History is complicated by complex trauma history and past substance abuse. Reactivity of mood seems more consistent with PTSD than bipolar II but the latter remains in differential. 10/04/20--outpatient provider updated. ongoing anxiety, some improvement in mood. (1) Major depression: 10/04/20--tolerating Remeron. Continue Buspar taper. 10/03/20--The patient was admitted to the [facility] ([facility]) on q15 min checks (behavioral with suicide precautions) for safety. The patient will participate in group, recreational, and milieu therapies and will be offered additional individual and family sessions as clinically appropriate. Taper Lexapro as potentially activating and taper Buspar as ineffective. (2) Post traumatic stress disorder (PTSD): 10/04/20--as above. 10/03/20--Risks/benefits/alternatives reviewed re: antidepressants for the treatment of depression and/or anxiety. The patient agreed to a trial of Remeron to address PTSD. Discussion included but was not limited to FDA warnings re: suicidality with antidepressants. Likely to improve sleep but Vistaril prn remains available. (3) Transgender: 10/03/20--MNPR, gender affirming care and confirm follow-up. Inventory Assets Strengths: verbal, interested in working, family orientation Needs: ongoing outpatient care Risk Factors Assessment : Yes Do You Have Access To A Gun?: No Mental Health Diagnoses: Yes Substance Use Disorders: No Previous Attempt: No Previous Psychiatric Hospitalization: No Protective Factors Assessment : No Responsible for Young Children: No Employed: No (Starting new job at [employer] on Friday) Supportive Family: Yes Interval History Chief Complaint "yeah I feel like my mom and I had a breakthrough". Review of Systems Sleep Information Total Hours of Sleep: 7 Meal Information Percent Meal Consumed - Breakfast: 100 Percent Meal Consumed - Lunch: 100 Percent Meal Consumed - Dinner: 100 Subjective Subjective Patient was seen & assessed and interval progress reviewed with treatment team. Patient was able to ask mother for what he needs when upset. Mother admitted that her drinking was not a good role model for patient "for first time". Patient slept better. He reports feeling anxious right now as a friend is going to pharmacy picking tech remaining items from ex-girlfriend's place. Physical Exam Psychiatric Orientation: alert and oriented x 3 Apperance: appropriately groomed Eye Contact: good eye contact Motor Behavior: no abnormal motor movements Speech: normal rate/rhythm/volume of speech Affect: + depressed affect Mood: + depressed mood and + anxious mood Thought Process: goal directed thought process Thought Content: reality based without delusions Suicidal Thoughts: denies suicidal thoughts Homicidal Thoughts: denies homicidal thoughts Hallucinations: no auditory hallucinations and no visual hallucinations Cognition: remote memory grossly intact and attention grossly intact Estimated Intelligence: consistent with education level Insight: + limited insight Judgement: + limited judgement Vital Signs (Past 24 Hours) Last Vital Signs Temp 36.7 C 10/04/20 06:00 Pulse 74 10/04/20 06:19 Resp 16 10/04/20 06:00 BP 117/78 10/04/20 06:19 Pulse Ox 99 10/03/20 06:47 Results & Data ([facility]) Laboratory Results Laboratory Results - last 24 hr 10/02/20 12:00 U Marijuana THC Carboxy >5000 H Drug Screen Comment SEE NOTE Current Inpatient Medications Current Inpatient Medications: Current Inpatient Medications Acetaminophen (Acetaminophen 325 Mg Tab) 650 mg PO Q4H PRN PRN Reason: Headache or Minor Fever Stop: 11/01/20 15:36 Al Hydrox/Mg Hydrox/Simethicone (Aluminum/Magnesium Susp 30 Ml Udc) 30 ml PO Q4H PRN PRN Reason: GI Upset Stop: 11/01/20 15:36 Albuterol (Albuterol Hfa 8 Gm Inhaler) 3 puffs INH Q6H PRN PRN Reason: Wheezing Stop: 11/02/20 03:29 Last Admin: 10/03/20 03:31 Dose: 3 puffs Documented by: Bismuth Subsalicylate (Bismuth Subsalicylate Liqd 236 Ml) 15 ml PO PRN PRN PRN Reason: Loose Stool Stop: 11/01/20 15:36 Buspirone HCl (Buspirone 5 Mg Tab) 5 mg PO [id number] COLE Stop: 10/05/20 07:01 Hydroxyzine HCl (Hydroxyzine Hcl 25 Mg Tab) 50 mg PO HSZ PRN PRN Reason: Insomnia Stop: 11/01/20 15:36 Last Admin: 10/03/20 21:32 Dose: 50 mg Documented by: Hydroxyzine HCl (Hydroxyzine Hcl 25 Mg Tab) 25 mg PO Q4H PRN PRN Reason: Anxiety Stop: 11/01/20 15:36 Last Admin: 10/04/20 10:02 Dose: 25 mg Documented by: Magnesium Hydroxide (Magnesium Hydroxide Susp 30 Ml Udc) 30 ml PO DAILY PRN PRN Reason: Constipation Stop: 11/01/20 15:36 Mirtazapine (Mirtazapine Tab 15 Mg Tab) 15 mg PO HS COLE Stop: 11/02/20 21:59 Last Admin: 10/03/20 21:32 Dose: 15 mg Documented by: Sodium Chloride (Sodium Chloride 0.65% Na Soln 45 Ml ([place])) 1 - 2 sprays NA PRN PRN PRN Reason: Nasal Dryness/Congestion Stop: 11/01/20 15:36 Mental Health & Subst Abuse Tx Psychiatrist Name of Psychiatrist: [facility] - Rupinder Jiang PA-C Psychiatrist's Date of Appointment with Psychiatrist: 10/25/01 Time of Appointment with Psychiatrist: 8:30am Psychiatric Appointment Comment: [facility] (virtual) Therapist Name of Therapist: [facility] Appointment Comment: Usually Mondays at 10:30 a.m. Layout Designer Name of Layout Designer: None Post Discharge Appointments Primary Care Physician Name Of Family Doctor: JENNIFER Espinoza Primary Care Provider Appointment Comment: [address] [place] [address] Halle Wallace Contact Information Discharge Discharge Address: [address] [place] [id number] (1) Major depression Major depression recurrence: single episode Active/Remission status: currently active Major depression episode severity: severe Psychotic features: without psychotic features Qualified Code(s): F32.2 - Major depressive disorder, single episode, severe without psychotic features
[2020-10-04] MEDS: busPIRone 5 MG TAB PO SCH (14:20)
[2020-10-04] MEDS: MIRTAZAPINE TAB 15 MG TAB PO SCH (21:27)
[2020-10-05] MEDS: busPIRone 5 MG TAB PO SCH (07:25)
--- NOTE | 2020-10-05 09:51 | Psychiatric Progress Note ---
Date of Service October 05, 2020 Impression / Recommendations Jessica Valle is a 24 yo trans male who presents with worsening anxiety and now SI on 2 antidepressant trials. History is complicated by complex trauma history and past substance abuse. Reactivity of mood seems more consistent with PTSD than bipolar II but the latter remains in differential. 10/05/20--some improvement in mood and sleep. risk of decompensation if leaves hospital support too soon. (1) Major depression: 10/05/20--continue current meds and tx plan, plan to use Vistaril prn for next few weeks. 10/04/20--tolerating Remeron. Continue Buspar taper. 10/03/20--The patient was admitted to the [facility] ([facility] mental health unit) on q15 min checks (behavioral with suicide precautions) for safety. The patient will participate in group, recreational, and milieu therapies and will be offered additional individual and family sessions as clinically appropriate. Taper Lexapro as potentially activating and taper Buspar as ineffective. (2) Post traumatic stress disorder (PTSD): 10/04/20--as above. 10/03/20--Risks/benefits/alternatives reviewed re: antidepressants for the treatment of depression and/or anxiety. The patient agreed to a trial of Remeron to address PTSD. Discussion included but was not limited to FDA warnings re: suicidality with antidepressants. Likely to improve sleep but Vistaril prn remains available. (3) Transgender: 10/03/20--MNPR, gender affirming care and confirm follow-up. Inventory Assets Strengths: verbal, interested in working, family orientation Needs: ongoing outpatient care Risk Factors Assessment : Yes Do You Have Access To A Gun?: No Mental Health Diagnoses: Yes Substance Use Disorders: No Previous Attempt: No Previous Psychiatric Hospitalization: No Protective Factors Assessment : No Responsible for Young Children: No Employed: No (Starting new job at [employer] on Friday) Supportive Family: Yes Interval History Chief Complaint "coming here was probably the best thing that could have happened". Review of Systems Sleep Information Total Hours of Sleep: 7 Meal Information Percent Meal Consumed - Breakfast: 100 Percent Meal Consumed - Lunch: 100 Percent Meal Consumed - Dinner: 100 Subjective Subjective Patient was seen & assessed and interval progress reviewed with nursing and social work. denies urge to cut. anxiety throughout day yesterday, prn Vistaril helpful. Sleep continues to improve. Physical Exam Psychiatric Orientation: alert and oriented x 3 Apperance: appropriately groomed Eye Contact: good eye contact Motor Behavior: no abnormal motor movements Speech: normal rate/rhythm/volume of speech Affect: + depressed affect Mood: + depressed mood and + anxious mood Thought Process: goal directed thought process Thought Content: reality based without delusions Suicidal Thoughts: denies suicidal thoughts Homicidal Thoughts: denies homicidal thoughts Hallucinations: no auditory hallucinations and no visual hallucinations Cognition: remote memory grossly intact and attention grossly intact Estimated Intelligence: consistent with education level Insight: + limited insight Judgement: + limited judgement Vital Signs (Past 24 Hours) Last Vital Signs Temp 36.7 C 10/05/20 06:00 Pulse 72 10/05/20 06:37 Resp 16 10/05/20 06:00 BP 121/76 10/05/20 06:37 Pulse Ox 99 10/03/20 06:47 Results & Data ([facility]) Current Inpatient Medications Current Inpatient Medications: Current Inpatient Medications Acetaminophen (Acetaminophen 325 Mg Tab) 650 mg PO Q4H PRN PRN Reason: Headache or Minor Fever Stop: 11/01/20 15:36 Al Hydrox/Mg Hydrox/Simethicone (Aluminum/Magnesium Susp 30 Ml Udc) 30 ml PO Q4H PRN PRN Reason: GI Upset Stop: 11/01/20 15:36 Albuterol (Albuterol Hfa 8 Gm Inhaler) 3 puffs INH Q6H PRN PRN Reason: Wheezing Stop: 11/02/20 03:29 Last Admin: 10/03/20 03:31 Dose: 3 puffs Documented by: Bismuth Subsalicylate (Bismuth Subsalicylate Liqd 236 Ml) 15 ml PO PRN PRN PRN Reason: Loose Stool Stop: 11/01/20 15:36 Hydroxyzine HCl (Hydroxyzine Hcl 25 Mg Tab) 50 mg PO HSZ PRN PRN Reason: Insomnia Stop: 11/01/20 15:36 Last Admin: 10/03/20 21:32 Dose: 50 mg Documented by: Hydroxyzine HCl (Hydroxyzine Hcl 25 Mg Tab) 25 mg PO Q4H PRN PRN Reason: Anxiety Stop: 11/01/20 15:36 Last Admin: 10/04/20 16:09 Dose: 25 mg Documented by: Magnesium Hydroxide (Magnesium Hydroxide Susp 30 Ml Udc) 30 ml PO DAILY PRN PRN Reason: Constipation Stop: 11/01/20 15:36 Mirtazapine (Mirtazapine Tab 15 Mg Tab) 15 mg PO HS COLE Stop: 11/02/20 21:59 Last Admin: 10/04/20 21:27 Dose: 15 mg Documented by: Sodium Chloride (Sodium Chloride 0.65% Na Soln 45 Ml ([place])) 1 - 2 sprays NA PRN PRN PRN Reason: Nasal Dryness/Congestion Stop: 11/01/20 15:36 Mental Health & Subst Abuse Tx Psychiatrist Name of Psychiatrist: [facility] [place] Rupinder Jiang PA-C Psychiatrist's Date of Appointment with Psychiatrist: 10/25/01 Time of Appointment with Psychiatrist: 8:30am Psychiatric Appointment Comment: [address] [facility] [employer] (virtual) Therapist Name of Therapist: Alejandra Marcelo Therapist's Date of Therapist Appointment: 10/10/20 Time of Therapist Appointment: 11:30am Therapy Appointment Comment: [address] [place] [address] Adhesive Bandage Making Operator Name of Adhesive Bandage Making Operator: None Post Discharge Appointments Primary Care Physician Name Of Family Doctor: JENNIFER Espinoza Primary Care Provider Appointment Comment: [address] [facility] H[facility] Wallace Contact Information Discharge Discharge Address: [address] [place] [address] (1) Major depression Major depression recurrence: single episode Active/Remission status: currently active Major depression episode severity: severe Psychotic features: without psychotic features Qualified Code(s): F32.2 - Major depressive disorder, single episode, severe without psychotic features
[2020-10-05] MEDS: hydrOXYzine HCl 25 MG TAB PO PRN (13:48)
[2020-10-05] MEDS: MIRTAZAPINE TAB 15 MG TAB PO SCH (21:56)
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
== END 2020-10-06 12:15 | disposition home or self-care (01) | DRG 885 ==
LOC: ED 11:34 → 3S 15:37